=== PATIENT | female | born 1990 | race American Indian/Alaskan Native ===

== ENCOUNTER 2016-09-14 10:02 | Emergency (ER) | payer MEDICAID ==
[2016-09-14] MEDS ORDERED: TORADOL IM ONE (13:26)
--- NOTE | 2016-09-14 14:16 | Emergency Department Report ---
ED General Adult HPI - General Chief complaint: Pain General Stated complaint: BODY PAINS Time Seen by Provider: 09/14/16 13:25 Source: patient Mode of arrival: Ambulatory Limitations: No Limitations - History of Present Illness Initial comments: 25 y/o female complain of generalized body ache x 2 months .pt state tahat she was seen at [facility] and was told she had lupus .pt noncompliant with medication .pt state that when she ache she out of predinsone which help with swelling . Onset/Timin -: month(s) Location: face, upper extremity, lower extremity Radiation: non-radiation Severity scale (0 -10): 5 Quality: aching Consistency: intermittent Improves with: medication Worsens with: none Associated Symptoms: denies other symptoms - Related Data Previous Rx's Medication Instructions Recorded Last Taken Type Amoxicillin/K Clav Tab [Augmentin 1 tab PO Q12HR #20 tab 07/15/15 Unknown Rx 875 mg] Fluticasone [Flonase] 1 spray NS QDAY #1 bottle 07/15/15 Unknown Rx Ibuprofen [Motrin 800 MG tab] 800 mg PO Q8HR PRN #30 tablet 07/15/15 Unknown Rx guaiFENesin/CODEINE [Robitussin AC] 5 ml PO Q6HR #120 ml 07/15/15 Unknown Rx Ciprofloxacin HCl [Ciprofloxacin 500 mg PO BID #10 tablet 07/20/16 Unknown Rx TAB] Fluconazole [Diflucan TAB] 150 mg PO ONCE #1 tablet 07/20/16 Unknown Rx Ibuprofen [Motrin] 800 mg PO Q8HR PRN #15 tablet 09/14/16 Unknown Rx predniSONE [Deltasone] 20 mg PO QDAY #5 tab 09/14/16 Unknown Rx Allergies Allergy/AdvReac Type Severity Reaction Status Date / Time peanut Allergy Vomiting Verified 11/23/13 18:44 tomato [Tomato] AdvReac Unknown Verified 11/23/13 18:44 wheat AdvReac Unknown Verified 11/23/13 18:44 ED Review of Systems ROS: Stated complaint: BODY PAINS Other details as noted in HPI Constitutional: denies: chills, fever Eyes: denies: eye pain, eye discharge, vision change ENT: denies: ear pain, throat pain Respiratory: denies: cough, shortness of breath, wheezing Cardiovascular: denies: chest pain, palpitations Endocrine: no symptoms reported Gastrointestinal: denies: abdominal pain, nausea, diarrhea Genitourinary: denies: urgency, dysuria, discharge Musculoskeletal: arthralgia. denies: back pain, joint swelling Skin: denies: rash, lesions Neurological: denies: headache, weakness, paresthesias Psychiatric: denies: anxiety, depression Hematological/Lymphatic: denies: easy bleeding, easy bruising ED Past Medical Hx - Past Medical History Previous Medical History?: Yes Hx Hypertension: Yes Hx Diabetes: No Hx Deep Vein Thrombosis: No Hx Renal Disease: No Hx Sickle Cell Disease: No Hx Seizures: No Hx Asthma: Yes (last attack 2012) Hx HIV: No Additional medical history: (ectopic ) - Surgical History Past Surgical History?: Yes Additional Surgical History: 3 vaginal deliveries - Social History Smoking Status: Former Smoker Substance Use Type: Non Opiate Pain - Medications Home Medications: Home Medications Medication Instructions Recorded Confirmed Last Taken Type Amoxicillin/K Clav Tab [Augmentin 1 tab PO Q12HR #20 tab 07/15/15 Unknown Rx 875 mg] Fluticasone [Flonase] 1 spray NS QDAY #1 bottle 07/15/15 Unknown Rx Ibuprofen [Motrin 800 MG tab] 800 mg PO Q8HR PRN #30 tablet 07/15/15 Unknown Rx guaiFENesin/CODEINE [Robitussin AC] 5 ml PO Q6HR #120 ml 07/15/15 Unknown Rx Ciprofloxacin HCl [Ciprofloxacin 500 mg PO BID #10 tablet 07/20/16 Unknown Rx TAB] Fluconazole [Diflucan TAB] 150 mg PO ONCE #1 tablet 07/20/16 Unknown Rx Ibuprofen [Motrin] 800 mg PO Q8HR PRN #15 tablet 09/14/16 Unknown Rx predniSONE [Deltasone] 20 mg PO QDAY #5 tab 09/14/16 Unknown Rx ED Physical Exam - General Limitations: No Limitations General appearance: alert, in no apparent distress - Head Head exam: Present: atraumatic, normocephalic - Eye Eye exam: Present: normal appearance, PERRL - ENT ENT exam: Present: mucous membranes moist - Neck Neck exam: Present: normal inspection, full ROM. Absent: tenderness - Respiratory Respiratory exam: Present: normal lung sounds bilaterally. Absent: respiratory distress - Cardiovascular Cardiovascular Exam: Present: regular rate, normal rhythm. Absent: systolic murmur, diastolic murmur, rubs, gallop - GI/Abdominal GI/Abdominal exam: Present: soft, normal bowel sounds - Extremities Exam Extremities exam: Present: normal inspection, full ROM, normal capillary refill. Absent: tenderness, pedal edema, joint swelling - Back Exam Back exam: Present: normal inspection, full ROM. Absent: tenderness, CVA tenderness (R), CVA tenderness (L), muscle spasm - Neurological Exam Neurological exam: Present: alert, oriented X3 - Psychiatric Psychiatric exam: Present: normal affect, normal mood - Skin Skin exam: Present: warm, dry, intact, normal color. Absent: rash ED Course Vital Signs 09/14/16 09/14/16 10:25 14:31 Temperature 98.1 F Pulse Rate 70 110 H Respiratory 16 16 Rate Blood Pressure 153/102 Blood Pressure 152/94 [Right] O2 Sat by Pulse 99 98 Oximetry ED Medical Decision Making - Medical Decision Making generalized bodyache pt current been follow at [facility] pt state she was told she has lupus pt requesting prednisone and pain control pt state she would follow up with primary care provider Critical care attestation.: If time is entered above; I have spent that time in minutes in the direct care of this critically ill patient, excluding procedure time. ED Disposition Clinical Impression: Body aches Disposition: DISCHARGED TO HOME OR SELFCARE Is pt being admited?: No Does the pt Need Aspirin: No Condition: Stable Instructions: Hypertension (ED) Additional Instructions: follow up with [facility] or primary care doctor Prescriptions: predniSONE [Deltasone] 20 mg PO QDAY #5 tab Ibuprofen [Motrin] 800 mg PO Q8HR PRN #15 tablet PRN Reason: Pain Referrals: PRIMARY CARE, [Primary Care Provider] - 3-5 Days [facility] [Outside] - 3-5 Days Time of Disposition: 14:16
[2016-09-14 14:33] VITALS: BP 152/94
== END 2016-09-14 14:33 | disposition home or self-care (01) ==
LOC: ED 10:02
DX: M79.1 Myalgia (principal); I10 Essential (primary) hypertension; J45.909 Unspecified asthma, uncomplicated; Z87.891 Personal history of nicotine dependence
CPT/HCPCS: 96372; 99282; J1885

== ENCOUNTER 2017-02-03 11:11 | Emergency (ER) | payer MEDICAID ==
--- NOTE | 2017-02-03 13:06 | Emergency Department Report ---
HPI - General Chief Complaint: Skin/Abscess/Foreign Body Time Seen by Provider: 02/03/17 12:27 - HPI HPI: She is a 26-year-old female presents to ED complaining of throat pain 2-3 days. Patient states she feels like her sinuses are congested and feels facial pressure for the past 2 days. Patient also states she has had right foot pain the past couple of days. Patient states she does not recall injuring the foot or fall or any trauma. Patient states he hurts to put on her shoes and weight bearing hurts as well. She reports takingno medications or any other medical problems She denies fevers/chills/nausea/vomiting/abdominal pain/chest pain/shortness of breath ED Past Medical Hx - Past Medical History Hx Hypertension: Yes Hx Diabetes: No Hx Deep Vein Thrombosis: No Hx Renal Disease: No Hx Sickle Cell Disease: No Hx Seizures: No Hx Asthma: Yes (last attack 2012) Hx HIV: No Additional medical history: (ectopic ) - Surgical History Additional Surgical History: 3 vaginal deliveries - Social History Smoking Status: Never Smoker Substance Use Type: Alcohol - Medications Home Medications: Home Medications Medication Instructions Recorded Confirmed Last Taken Type Amoxicillin/K Clav Tab [Augmentin 1 tab PO Q12HR #20 tab 07/15/15 Unknown Rx 875 mg] guaiFENesin/CODEINE [Robitussin AC] 5 ml PO Q6HR #120 ml 07/15/15 Unknown Rx Ciprofloxacin HCl [Ciprofloxacin 500 mg PO BID #10 tablet 07/20/16 Unknown Rx TAB] Fluconazole [Diflucan TAB] 150 mg PO ONCE #1 tablet 07/20/16 Unknown Rx Ibuprofen [Motrin] 800 mg PO Q8HR PRN #15 tablet 09/14/16 Unknown Rx predniSONE [Deltasone] 20 mg PO QDAY #5 tab 09/14/16 Unknown Rx Cyclobenzaprine [Flexeril] 10 mg PO QHS PRN #20 tablet 02/03/17 Unknown Rx Fluticasone [Flonase] 1 spray NS QDAY #1 bottle 02/03/17 Unknown Rx Ibuprofen [Motrin 800 MG tab] 800 mg PO Q8HR PRN #30 tablet 02/03/17 Unknown Rx Pseudoephedrine [Sudafed] 1 tab PO TID #30 tablet 02/03/17 Unknown Rx ED Review of Systems ROS: Stated complaint: SPIDER BITE FOOT AND HANDS SWOLLEN Other details as noted in HPI Constitutional: denies: chills, fever Eyes: denies: eye pain, eye discharge, vision change ENT: denies: ear pain, throat pain Respiratory: denies: cough, shortness of breath, wheezing Cardiovascular: denies: chest pain, palpitations Endocrine: no symptoms reported Gastrointestinal: denies: abdominal pain, nausea, diarrhea Genitourinary: denies: urgency, dysuria, discharge Musculoskeletal: denies: back pain, joint swelling, arthralgia Skin: denies: rash, lesions Neurological: denies: headache, weakness, paresthesias Psychiatric: denies: anxiety, depression Hematological/Lymphatic: denies: easy bleeding, easy bruising Physical Exam - Physical Exam Vital Signs: Vital Signs 02/03/17 11:39 Temperature 99.0 F Pulse Rate 69 Respiratory 16 Rate Blood Pressure 133/97 O2 Sat by Pulse 99 Oximetry Physical Exam: GENERAL: Alert and oriented x3, no apparent distress, Normal Gait, atraumatic. HEAD: Head is normocephalic and a-traumatic. No sinus tenderness EARS: symetrical, atraumatic, non tender, ear canal clear and moderate cerumen, tympanic membrance non inflamed. gross auditory nml bilaterally. MOUTH:Mouth is well hydrated and without lesions. Tonsils nonerythematous, mildly swollen, Uvula midline, Tongue not elevated. Mucous membranes are moist. Posterior pharynx clear, no exudate or lesions. Patent airways. NECK: Supple. Non edematous, No carotid bruits. No lymphadenopathy or thyromegaly. LUNGS: Symetrical with respiration, No wheezing, no rales or crackles, CTAB. HEART: S1, S2 present, regular rate and rhythm without murmur, no rubs, no gallops. ABDOMEN: No organomegaly was noted,Positive bowel sounds, soft, and non- distended. . Nontender to palpation on all Quadrants, NO CVA tenderness. EXTREMITIES/MUSCULOSKELETAL: No cyanosis, clubbing, rash, lesions or edema. Full ROM bilaterally. UE/LE Pulses 2+ bilaterally. Upper extremity the wrist and ankle and foot joints intact, nonerythematous, nonerythematous, joints are nontender to palpation. NEUROLOGIC: The patient is cooperative with no focal neurologic deficits. Cranial nerves II through XII are grossly intact. Normal speech. SKIN: Warm and dry, No lesions, No ulceration or induration present. ED Course Vital Signs 02/03/17 11:39 Temperature 99.0 F Pulse Rate 69 Respiratory 16 Rate Blood Pressure 133/97 O2 Sat by Pulse 99 Oximetry ED Medical Decision Making - Medical Decision Making 26-year-old female presents with nasal congestion/foot arthralgia ED course: Patient received Tylenol and codeine , 60 mg of prednisone. Urinalysis, urine test negative. Discussed the patient take medication as prescribed. Vital signs are normal patient is in no acute distress. Patient understands instructions given and states she will comply to follow-up. Patient has no neurological deficit Critical care attestation.: If time is entered above; I have spent that time in minutes in the direct care of this critically ill patient, excluding procedure time. ED Disposition Clinical Impression: Nasal sinus congestion Arthralgia of foot Qualifiers: Laterality: right Qualified Code(s): M25.571 - Pain in right ankle and joints of right foot Disposition: DISCHARGED TO HOME OR SELFCARE Is pt being admited?: No Does the pt Need Aspirin: No Condition: Stable Instructions: Pseudoephedrine (By mouth), Allergic Rhinitis (ED), Arthralgia ( ED) Prescriptions: Cyclobenzaprine [Flexeril] 10 mg PO QHS PRN #20 tablet PRN Reason: Muscle Spasm Fluticasone [Flonase] 1 spray NS QDAY #1 bottle Ibuprofen [Motrin 800 MG tab] 800 mg PO Q8HR PRN #30 tablet PRN Reason: Pain Pseudoephedrine [Sudafed] 1 tab PO TID #30 tablet Referrals: PRIMARY MD FAVIOLA [Primary Care Provider] - 3-5 Days SIGIFREDO GOLD MD [Referring] - 3-5 Days [facility] [Outside] - 3-5 Days [facility] [Outside] - 3-5 Days [facility] [Outside] - 3-5 Days Forms: Accompanied Note, Work/School Release Form(ED) Time of Disposition: 15:04
[2017-02-03] MEDS ORDERED: TYLENOL/CODEINE PO ONE (14:56)
[2017-02-03] MEDS ORDERED: DELTASONE PO ONE (15:00)
[2017-02-03 15:06] LABS: Bilirubin,Urine NEG (Negative); Blood,Urine NEG (Negative); Ketones,Urine NEG (Negative); Leukocyte Esterase,Urine MOD (Negative); Mucus,Urine FEW /HPF; Nitrite,Urine NEG (Negative); Protein,Urine <15 mg/dL mg/dL (Negative); Urobilinogen,Urine < 2.0 mg/dL (<2.0)
--- NOTE | 2017-02-03 15:35 | XRay Report ---
Right foot 3 views: History: Pain. Findings: No bony or articular abnormality. No fracture dislocation or soft tissue calcification. Impression: Essentially negative right foot.
--- NOTE | 2017-02-03 15:35 | XRay Report ---
Single view chest: Compared to 07/15/15. History: Chest. Findings: Normal cardiomediastinal silhouette. Trachea is midline. No consolidation, pneumothorax or pleural effusion. Impression: No acute cardiopulmonary findings.
[2017-02-03 16:21] VITALS: BP 126/82
== END 2017-02-03 16:21 | disposition home or self-care (01) ==
LOC: ED 11:11
DX: R09.81 Nasal congestion (principal); M25.571 Pain in right ankle and joints of right foot; I10 Essential (primary) hypertension; J45.909 Unspecified asthma, uncomplicated; Z91.018 Allergy to other foods; Z91.010 Allergy to peanuts
CPT/HCPCS: 71010; 73630; 81001; 81025; 87116; 87430; 99284; J7512

== ENCOUNTER 2017-05-28 12:03 | Day surgery (SDC) | payer MEDICAID ==
[~2017-05-28 12:03] MED LIST: MARCAINE 0.5% INFILTRATI ONE; NACL 0.9% IR ONE
--- NOTE | 2017-05-28 13:14 | Short Stay Summary ---
Short Stay Documentation Date of service: 05/28/17 Narrative H&P: 26y/o with pelvic pain located on the left. She had findings of a small left ovarian cyst. Patient states the pain has been persistent for weeks. - History Principal diagnosis: Pelvic pain Past Medical History: No medical history Past Surgical History: Other (laparoscopy) Social history: single - Allergies and Medications Current Medications: Allergies No Known Allergies Allergy (Unverified 05/27/17 12:45) Home Medications Medication Instructions Recorded Confirmed Last Taken Type No Known Home Medications [No 05/27/17 05/27/17 Unknown History Reported Home Medications] - Physical exam General appearance: no acute distress Integumentary: no rash HEENT: Atraumatic Lungs: Clear to auscultation Breasts: deferred Heart: Regular rate Gastrointestinal: normal Female Genitourinary: deferred Rectal Exam: deferred - Brief post op/procedure progress note Date of procedure: 05/28/17 Pre-op diagnosis: pelvic pain; left ovarian cyst Post-op diagnosis: same Procedure: Laparoscopy Left ovarian cystectomy Ablation of endometriotic implants Anesthesia: GETA Surgeon: SERENA MARTÍNEZ Estimated blood loss: minimal Pathology: list (ovarian cyst wall) Specimen disposition: to lab Condition: stable - Hospital course Hospital course: The patient was admitted the day of surgery and underwent a laparoscopy and left ovarian cystectomy. Please see operative note for details of surgery. Postoperative course was uneventful. - Disposition Condition at discharge: Good Disposition: DC-01 TO HOME OR SELFCARE Short Stay Discharge Plan Activity: other (pelvic rest for 1 week) Diet: regular Additional Instructions: Patient may follow up with Dr. Martínez in 2-4 weeks Prescriptions: Ibuprofen [Motrin] 800 mg PO Q8HR PRN #60 tablet PRN Reason: Pain oxyCODONE /ACETAMINOPHEN [Percocet 5/325] 1 tab PO Q6HR PRN #30 tablet PRN Reason: Pain
--- NOTE | 2017-05-28 13:32 | Anesthesia Consultation ---
Anesthesia Consult and Med Hx Date of service: 05/28/17 - Airway Anesthetic Teeth Evaluation: Good ROM Head & Neck: Adequate Mental/Hyoid Distance: Adequate Mallampati Class: Class I Intubation Access Assessment: Good - Pulmonary Exam CTA: Yes - Cardiac Exam Cardiac Exam: RRR - Pre-Operative Health Status ASA Pre-Surgery Classification: ASA2 Proposed Anesthetic Plan: General - Pulmonary Hx Smoking: Yes (occas) Hx Asthma: Yes (as a child) - Cardiovascular System Hx Hypertension: Yes - Central Nervous System Hx Seizures: No Hx Psychiatric Problems: No - Endocrine Hx Renal Disease: No Hx Hypothyroidism: No Hx Hyperthyroidism: No - Hematic Hx Anemia: Yes (takes iron tablets) Hx Sickle Cell Disease: No - Other Systems Hx Alcohol Use: No Hx Cancer: No
--- NOTE | 2017-05-28 13:32 | Anesthesia Day of Surgery ---
Anesthesia Day of Surgery - Day of Surgery Patient Examined: Yes Patient H&P Reviewed: Yes Patient is NPO: Yes
[2017-05-28] MEDS ORDERED: PEPCID PO NR (14:00)
[2017-05-28] MEDS ORDERED: DIPRIVAN 10 MG/ML IV ONE (14:32)
[2017-05-28] MEDS ORDERED: SUBLIMAZE ONE (14:33)
[2017-05-28] MEDS ORDERED: XYLOCAINE MPF 2% ONE (14:33)
[2017-05-28] MEDS ORDERED: ZEMURON IV ONE (14:35)
[2017-05-28] MEDS: LACTATED RINGERS 1,000 ML IV SCH ×2 (14:44→18:20)
[2017-05-28 14:47] LABS: Hematocrit 40.1 % (30.3-42.9); Hemoglobin 12.9 gm/dl (10.1-14.3)
[2017-05-28] MEDS: VERSED IV NR ×2 (14:50→15:36)
[2017-05-28] MEDS ORDERED: VERSED IV SCH (15:32)
[2017-05-28] MEDS ORDERED: MARCAINE 0.5% 30 ML INFILTRATI ONE (15:41)
[2017-05-28] MEDS ORDERED: ZOFRAN ONE ×2 (16:20→19:19)
[2017-05-28] MEDS ORDERED: DECADRON ONE (16:20)
[2017-05-28] MEDS ORDERED: NEOSTIGMINE ONE (16:20)
[2017-05-28] MEDS ORDERED: ROBINUL ONE (16:21)
[2017-05-28] MEDS ORDERED: MARCAINE 0.5% INFILTRATI ONE (16:39)
[2017-05-28] MEDS ORDERED: NACL 0.9% IR ONE (16:43)
--- NOTE | 2017-05-28 16:49 | Operative Report ---
Operative Report Operative Report: Date of surgery: 05/28/2017 Preoperative diagnosis: Pelvic pain; left ovarian cyst Postoperative diagnosis: Same as above; endometriotic implants Procedure: Laparoscopy; left ovarian cystectomy; ablation of endometriotic implants Surgeon: Jackie Loja M.D. Anesthesia: General endotracheal anesthesia Estimated blood loss: Minimal Findings:[default value] Indication:[default value] Procedure: The patient was taken to the operating room and given general endotracheal anesthesia without complication. The patient is prepped and draped in a normal sterile fashion. A bivalve speculum was placed in the patient's vagina and a single-tooth tenaculum was placed on the anterior lip of the cervix .A uterine acorn manipulato rwas placed, and the bivalve speculum was then removed. Attention was then turned to the patient's abdomen where a 5 mm infraumbilical skin incision was then made. A Veress needle was placed and peritoneal entry was verified water-filled syringe. Insufflation of the peritoneal cavity was performed with CO2 gas. A 5 mm trocar was placed and the laparoscope was then inserted. The patient was then placed in Trendelenburg. A 7 mm suprapubic skin incision was then made. Under direct visualization a 7 mm trocar was then placed. General survey of the patient's abdomen revealed[default value]. The fallopian tube was then followed out to the fimbriated end. A Filshie clip was placed, on the ampullary portion of the tube. This was performed on the contralateral side as well. The 7 mm trocar was then removed. The pneumoperitoneum was then released. The 5 mm trocar laparoscope was then removed. The skin incisions were then closed with 4-0 Monocryl. The incisions were injected with quarter percent Marcaine. Dressings were applied to the incision. The vaginal instruments were then removed atraumatically. Then successfully extubated and taken to the recovery room. All sponge laps and needle counts were correct 2.
[2017-05-28] MEDS ORDERED: ZOFRAN IV PRN (17:30)
[2017-05-28] MEDS: DILAUDID IV PRN ×4 (17:35→18:05)
--- NOTE | 2017-05-28 17:39 | Post Anesthesia Evaluation ---
- Post Anesthesia Evaluation Patient Participated: Yes Airway Patent: Yes Stable Respiratory Function: Yes Nausea/Vomiting: No Temp > 96.8F: Yes Pain Manageable: Yes Adequeate Hydration: Yes Anesthesia Complications: No Block Receding Appropriately: Not Applicable Patient on Ventilator: No
[2017-05-28] MEDS ORDERED: PERCOCET 5/325 PO PRN (18:10)
[2017-05-28 19:52] VITALS: BP 125/81
== END 2017-05-28 19:40 | disposition home or self-care (01) ==
LOC: OR 12:03
PROVIDERS: ATTEND Obstetrics & Gynecology
DX: N83.12 Corpus luteum cyst of left ovary (principal); N80.8 Other endometriosis; I10 Essential (primary) hypertension
CPT/HCPCS: 36415; 58662; 81025; 85014; 85018; 88305; J1100; J1170; J2250; J2405; J2704; J2710; J3010; J7120

== ENCOUNTER 2018-05-11 05:15 | Emergency (ER) | payer MEDICAID ==
[2018-05-11] MEDS ORDERED: TORADOL ONE (06:06)
[2018-05-11 06:12] VITALS: BP 140/93
[2018-05-11] MEDS ORDERED: TORADOL IM ONE (06:12)
[2018-05-11] MEDS ORDERED: DECADRON IM ONE (06:44)
[2018-05-11] MEDS ORDERED: BICILLIN L-A IM ONE (06:44)
--- NOTE | 2018-05-11 06:51 | Emergency Department Report ---
ED ENT HPI - General Chief complaint: Sore Throat Stated complaint: THROAT PAIN/BODY ACHE Time Seen by Provider: 05/11/18 06:44 Source: patient Mode of arrival: Ambulatory Limitations: No Limitations - History of Present Illness Initial comments: With this Patient is a 27-year-old [place] female who presents to sore throat 3 days with dysphagia pain relieved by nothing and exacerbated by swallowing MD complaint: sore throat Onset/Timin -: days(s) Location: throat Severity: moderate Severity scale (0 -10): 6 Quality: burning, sharp Consistency: intermittent Improves with: none Worsens with: swallowing Associated Symptoms: pain with swallowing, sore throat - Related Data Previous Rx's Medication Instructions Recorded Last Taken Type Ibuprofen [Motrin] 800 mg PO Q8HR PRN #60 tablet 05/28/17 Unknown Rx oxyCODONE /ACETAMINOPHEN [Percocet 1 tab PO Q6HR PRN #30 tablet 05/28/17 Unknown Rx 5/325] Benzocaine/Menth/Cetylpyrd 1 each PO Q2H PRN #24 yordan 05/11/18 Unknown Rx [Cepacol X Strength] Ibuprofen 800 mg PO TID PRN #30 tablet 05/11/18 Unknown Rx Allergies Allergy/AdvReac Type Severity Reaction Status Date / Time No Known Allergies Allergy Unverified 05/27/17 12:45 ED Dental HPI - General Chief complaint: Sore Throat Stated complaint: THROAT PAIN/BODY ACHE Time Seen by Provider: 05/11/18 06:44 Source: patient Mode of arrival: Ambulatory Limitations: No Limitations - Related Data Previous Rx's Medication Instructions Recorded Last Taken Type Ibuprofen [Motrin] 800 mg PO Q8HR PRN #60 tablet 05/28/17 Unknown Rx oxyCODONE /ACETAMINOPHEN [Percocet 1 tab PO Q6HR PRN #30 tablet 05/28/17 Unknown Rx 5/325] Benzocaine/Menth/Cetylpyrd 1 each PO Q2H PRN #24 yordan 05/11/18 Unknown Rx [Cepacol X Strength] Ibuprofen 800 mg PO TID PRN #30 tablet 05/11/18 Unknown Rx Allergies Allergy/AdvReac Type Severity Reaction Status Date / Time No Known Allergies Allergy Unverified 05/27/17 12:45 ED Review of Systems ROS: Stated complaint: THROAT PAIN/BODY ACHE Other details as noted in HPI Constitutional: denies: chills, fever Eyes: denies: eye pain, eye discharge, vision change ENT: throat pain Respiratory: denies: cough, shortness of breath, wheezing Cardiovascular: denies: chest pain, palpitations Endocrine: no symptoms reported Gastrointestinal: denies: abdominal pain, nausea, diarrhea Genitourinary: denies: urgency, dysuria, discharge Musculoskeletal: denies: back pain, joint swelling, arthralgia Skin: denies: rash, lesions Neurological: denies: headache, weakness, paresthesias Psychiatric: denies: anxiety, depression Hematological/Lymphatic: denies: easy bleeding, easy bruising ED Past Medical Hx - Past Medical History Hx Hypertension: Yes Hx Diabetes: No Hx Deep Vein Thrombosis: No Hx Renal Disease: No Hx Sickle Cell Disease: No Hx Seizures: No Hx Asthma: Yes (as a child) Hx HIV: No Additional medical history: (ectopic ) - Surgical History Additional Surgical History: 3 vaginal deliveries - Social History Smoking Status: Current Every Day Smoker Substance Use Type: None - Medications Home Medications: Home Medications Medication Instructions Recorded Confirmed Last Taken Type Ibuprofen [Motrin] 800 mg PO Q8HR PRN #60 tablet 05/28/17 Unknown Rx oxyCODONE /ACETAMINOPHEN [Percocet 1 tab PO Q6HR PRN #30 tablet 05/28/17 Unknown Rx 5/325] Benzocaine/Menth/Cetylpyrd 1 each PO Q2H PRN #24 yordan 05/11/18 Unknown Rx [Cepacol X Strength] Ibuprofen 800 mg PO TID PRN #30 tablet 05/11/18 Unknown Rx ED Physical Exam - General Limitations: No Limitations General appearance: alert, in no apparent distress - Head Head exam: Present: atraumatic, normocephalic - Eye Eye exam: Present: normal appearance - ENT ENT exam: Present: mucous membranes moist, TM's normal bilaterally (TOSHA and) - Expanded ENT Exam Expanded Throat exam: Positive: tonsillar erythema, tonsillomegaly, tonsillar exudate. Negative: R peritonsillar mass, L peritonsillar mass - Neck Neck exam: Present: normal inspection, full ROM, lymphadenopathy. Absent: tenderness, meningismus, thyromegaly - Respiratory Respiratory exam: Present: normal lung sounds bilaterally. Absent: respiratory distress, wheezes, stridor, chest wall tenderness - Cardiovascular Cardiovascular Exam: Present: regular rate, normal rhythm, normal heart sounds. Absent: systolic murmur, diastolic murmur, rubs, gallop - GI/Abdominal GI/Abdominal exam: Present: soft, normal bowel sounds - Rectal Rectal exam: Present: deferred - External exam: Present: normal external exam - Extremities Exam Extremities exam: Present: normal inspection - Back Exam Back exam: Present: normal inspection - Neurological Exam Neurological exam: Present: alert, oriented X3, CN II-XII intact, normal gait, reflexes normal. Absent: motor sensory deficit - Psychiatric Psychiatric exam: Present: normal affect, normal mood - Skin Skin exam: Present: warm, dry, intact, normal color. Absent: rash ED Course Vital Signs 05/11/18 06:08 Temperature 99.5 F Pulse Rate 89 Respiratory 16 Rate Blood Pressure 140/93 O2 Sat by Pulse 99 Oximetry ED Medical Decision Making - Lab Data Laboratory Tests 05/11/18 Unknown Group A Strep Rapid Positive A - Medical Decision Making pt is a 27 y/o aaf who preents for sore throat x 3 days with dysphagia rapid strep positive for strep a plan Bicillin LA 1.2 milliunits Decadron 10 mg IM DC' d home Cepacol lozenges ibuprofen . The patient will follow up with PCP N2 to 3 days return to ED if symptoms worsen Critical care attestation.: If time is entered above; I have spent that time in minutes in the direct care of this critically ill patient, excluding procedure time. ED Disposition Clinical Impression: Strep throat Disposition: DC-01 TO HOME OR SELFCARE Is pt being admited?: No Does the pt Need Aspirin: No Condition: Good Instructions: Strep Throat (ED) Prescriptions: Benzocaine/Menth/Cetylpyrd [Cepacol X Strength] 1 each PO Q2H PRN #24 yordan PRN Reason: Pain , Severe (7-10) Ibuprofen 800 mg PO TID PRN #30 tablet PRN Reason: pain Referrals: PRIMARY CARE, [Primary Care Provider] - 3-5 Days Forms: Work/School Release Form(ED) Time of Disposition: 06:55
== END 2018-05-11 07:28 | disposition home or self-care (01) ==
LOC: ED 05:15
DX: J02.0 Streptococcal pharyngitis (principal); I10 Essential (primary) hypertension; J45.909 Unspecified asthma, uncomplicated; F17.200 Nicotine dependence, unspecified, uncomplicated
CPT/HCPCS: 87430; 96372; 99283; J0561; J1100; J1885

== ENCOUNTER 2018-09-22 22:58 | Emergency (ER) | payer MEDICAID ==
[2018-09-22 23:08] VITALS: BP 153/83
[2018-09-22] MEDS ORDERED: TYLENOL PO ONE (23:10)
[2018-09-22] MEDS ORDERED: TYLENOL ONE ×2 (23:13)
[2018-09-22 23:18] LABS: Hematocrit 35.7 % (30.3-42.9); Hemoglobin 12.1 gm/dl (10.1-14.3); Mean Corpuscular HGB Conc 34 % (30-34); Mean Corpuscular Volume 83 fl (79-97); Platelet Count 289 K/mm3 (140-440); Red Blood Count 4.28 M/mm3 (3.65-5.03); Red Cell Distribution Width 13.1 % (13.2-15.2)
[2018-09-22 23:35] LABS: Alanine Aminotransferase 13 units/L (7-56); Albumin 4.4 g/dL (3.9-5); BUN/Creatinine Ratio 7; Blood Urea Nitrogen 8 mg/dL (7-17); Calcium 9.2 mg/dL (8.4-10.2); Hemolysis Index 10
[2018-09-22 23:51] LABS: Total Cells Counted 100
[2018-09-22 23:52] LABS: Anisocytosis 1+; Large Platelets 1+; Ovalocytes 1+
[2018-09-23 00:11] LABS: Bilirubin,Urine NEG (Negative); Blood,Urine MOD (Negative); Color,Urine Yellow (Yellow); Mucus,Urine 2+ /HPF
[2018-09-23] MEDS ORDERED: NACL 0.9% 1000 ML 1,000 ML IV ONE (02:51)
[2018-09-23] MEDS ORDERED: ZOFRAN IV ONE (02:51)
[2018-09-23] MEDS ORDERED: MORPHINE IV ONE (02:51)
[2018-09-23] MEDS ORDERED: TORADOL IVP ONE (02:51)
--- NOTE | 2018-09-23 02:51 | Emergency Department Report ---
ED Abdominal Pain HPI - General Chief Complaint: Abdominal Pain Stated Complaint: ABDOMINAL, BACK PAIN Time Seen by Provider: 09/23/18 02:20 Source: patient, family Mode of arrival: Ambulatory Limitations: No Limitations - History of Present Illness Initial Comments: This is 27-year-old patient here reports that she is having abdominal pain periumbilical area decided down her right lower quadrant. Patient says she was seen by her doctor today and he just told her that she is stressed. She says she came to the hospital because the pain is really bad on the right side and she had some nausea and vomiting. Pain is 10 out of 10 and sharp and achy. Denies any fever or chills. Denies any urinary burning, frequency or urgency. Denies any back pain. No alleviating and excess abated with movement and touch. MD Complaint: abdominal pain -: This morning Location: periumbilical, RLQ Radiation: back (right back) Migration to: no migration Severity: severe Severity scale (0 -10): 10 Quality: cramping, fullness, sharp Consistency: constant Improves With: nothing Worsens With: movement (and palpation) Context: other (unknown) Associated Symptoms: nausea, vomiting. denies: diarrhea, fever, chills, constipation, dysuria, hematemesis, hematochezia, melena, hematuria, anorexia, syncope Treatments Prior to Arrival: other (Tylenol) - Related Data Previous Rx's Medication Instructions Recorded Last Taken Type Ibuprofen [Motrin] 800 mg PO Q8HR PRN #60 tablet 05/28/17 Unknown Rx oxyCODONE /ACETAMINOPHEN [Percocet 1 tab PO Q6HR PRN #30 tablet 05/28/17 Unknown Rx 5/325] Benzocaine/Menth/Cetylpyrd 1 each PO Q2H PRN #24 yordan 05/11/18 Unknown Rx [Cepacol X Strength] Ibuprofen 800 mg PO TID PRN #30 tablet 05/11/18 Unknown Rx Naproxen [Naprosyn] 500 mg PO BID PRN #12 tablet 09/23/18 Unknown Rx Ondansetron [Zofran ODT TAB] 8 mg PO Q8HR PRN #12 tab.rapdis 09/23/18 Unknown Rx Allergies Allergy/AdvReac Type Severity Reaction Status Date / Time No Known Allergies Allergy Unverified 05/27/17 12:45 ED Review of Systems ROS: Stated complaint: ABDOMINAL, BACK PAIN Other details as noted in HPI Constitutional: denies: chills, fever ENT: denies: throat pain, dental pain, congestion Respiratory: denies: cough, shortness of breath, wheezing Cardiovascular: denies: chest pain, palpitations, dyspnea on exertion, edema, syncope Gastrointestinal: abdominal pain, nausea, vomiting. denies: diarrhea, constipation, hematemesis, melena, hematochezia Genitourinary: denies: urgency, dysuria, frequency, hematuria, discharge, abnormal menses, dyspareunia Musculoskeletal: denies: back pain, joint swelling, arthralgia, myalgia Skin: denies: rash Neurological: denies: headache, weakness, numbness, paresthesias, confusion, abnormal gait, vertigo ED Past Medical Hx - Past Medical History Previous Medical History?: Yes Hx Hypertension: Yes Hx Diabetes: No Hx Deep Vein Thrombosis: No Hx Renal Disease: No Hx Sickle Cell Disease: No Hx Seizures: No Hx Asthma: Yes (as a child) Hx HIV: No Additional medical history: (ectopic ) - Surgical History Past Surgical History?: Yes Additional Surgical History: 3 vaginal deliveries - Family History Family history: hypertension - Social History Smoking Status: Current Every Day Smoker Substance Use Type: Alcohol, Marijuana - Medications Home Medications: Home Medications Medication Instructions Recorded Confirmed Last Taken Type Ibuprofen [Motrin] 800 mg PO Q8HR PRN #60 tablet 05/28/17 Unknown Rx oxyCODONE /ACETAMINOPHEN [Percocet 1 tab PO Q6HR PRN #30 tablet 05/28/17 Unknown Rx 5/325] Benzocaine/Menth/Cetylpyrd 1 each PO Q2H PRN #24 yordan 05/11/18 Unknown Rx [Cepacol X Strength] Ibuprofen 800 mg PO TID PRN #30 tablet 05/11/18 Unknown Rx Naproxen [Naprosyn] 500 mg PO BID PRN #12 tablet 09/23/18 Unknown Rx Ondansetron [Zofran ODT TAB] 8 mg PO Q8HR PRN #12 tab.rapdis 09/23/18 Unknown Rx ED Physical Exam - General Limitations: No Limitations General appearance: alert, in no apparent distress - Head Head exam: Present: atraumatic, normocephalic, normal inspection - Eye Eye exam: Present: normal appearance, PERRL, EOMI Pupils: Present: normal accommodation - ENT ENT exam: Present: normal exam, normal orophraynx, mucous membranes moist, TM's normal bilaterally, normal external ear exam - Neck Neck exam: Present: normal inspection, full ROM. Absent: tenderness, lymphadenopathy - Respiratory Respiratory exam: Present: normal lung sounds bilaterally. Absent: respiratory distress, chest wall tenderness - Cardiovascular Cardiovascular Exam: Present: regular rate, normal rhythm, normal heart sounds - GI/Abdominal GI/Abdominal exam: Present: soft, tenderness (tended to palpate to periumbilical and right lower quadrant), guarding, normal bowel sounds. Absent: distended, rebound, rigid, organomegaly, mass, bruit, pulsatile mass - Extremities Exam Extremities exam: Present: normal inspection, full ROM, normal capillary refill, other (No cce. + 2 pulses in all extremities, no neurovascular compromise). Absent: tenderness, pedal edema, joint swelling, calf tenderness - Back Exam Back exam: Present: normal inspection, full ROM, other (ambulates without any difficulties). Absent: tenderness, CVA tenderness (R), CVA tenderness (L), muscle spasm, paraspinal tenderness, vertebral tenderness, rash noted - Neurological Exam Neurological exam: Present: alert, oriented X3, normal gait - Psychiatric Psychiatric exam: Present: normal affect, normal mood - Skin Skin exam: Present: warm, dry, intact, normal color. Absent: rash ED Course Vital Signs 09/22/18 23:00 Pulse Rate 85 Respiratory 18 Rate Blood Pressure 153/83 O2 Sat by Pulse 98 Oximetry - Reevaluation(s) Reevaluation #1: 09/23/18 05:03 Patient given Tylenol 650 mg in triage year which did not relieve her pain. She was given morphine 4 mg IV for pain, and Toradol 30 mg IV, Zofran 8 mg IV for nausea and 1 L of normal saline. She said her pain is better. Patient has CT scan of the abdomen and pelvis with IV contrast and still awaiting results. Reevaluation #2: 09/23/18 05:16 CT scan shows right ovarian cyst. Patient pain is controlled and she is no longer having any nausea or vomiting. She is stable and ready to go home. ED Medical Decision Making - Lab Data Result diagrams: 09/22/18 23:10 09/22/18 23:10 Lab Results 09/22/18 09/22/18 09/22/18 Range/Units 23:10 23:10 23:10 WBC 9.7 (4.5-11.0) K/mm3 RBC 4.28 (3.65-5.03) M/mm3 Hgb 12.1 (10.1-14.3) gm/dl Hct 35.7 (30.3-42.9) % MCV 83 (79-97) fl MCH 28 (28-32) pg MCHC 34 (30-34) % RDW 13.1 L (13.2-15.2) % Plt Count 289 (140-440) K/mm3 Lymph % (Auto) Greenhouse Assistant Lymph # Greenhouse Assistant Add Manual Diff Complete Total Counted 100 Seg Neuts % (Manual) 38.0 L (40.0-70.0) % Band Neutrophils % 0 % Lymphocytes % (Manual) 49.0 H (13.4-35.0) % Reactive Lymphs % (Man) 3.0 % Monocytes % (Manual) 4.0 (0.0-7.3) % Eosinophils % (Manual) 4.0 (0.0-4.3) % Basophils % (Manual) 2.0 H (0.0-1.8) % Metamyelocytes % 0 % Myelocytes % 0 % Promyelocytes % 0 % Blast Cells % 0 % Nucleated RBC % Not Reportable Seg Neutrophils # Man 3.7 (1.8-7.7) K/mm3 Band Neutrophils # 0.0 K/mm3 Lymphocytes # (Manual) 4.8 (1.2-5.4) K/mm3 Abs React Lymphs (Man) 0.3 K/mm3 Monocytes # (Manual) 0.4 (0.0-0.8) K/mm3 Eosinophils # (Manual) 0.4 (0.0-0.4) K/mm3 Basophils # (Manual) 0.2 H (0.0-0.1) K/mm3 Metamyelocytes # 0.0 K/mm3 Myelocytes # 0.0 K/mm3 Promyelocytes # 0.0 K/mm3 Blast Cells # 0.0 K/mm3 WBC Morphology Not Reportable Hypersegmented Neuts Not Reportable Hyposegmented Neuts Not Reportable Hypogranular Neuts Not Reportable Smudge Cells Not Reportable Toxic Granulation Not Reportable Toxic Vacuolation Not Reportable Dohle Bodies Not Reportable Pelger-Huet Anomaly Not Reportable Ousmane Rods Not Reportable Platelet Estimate Appears normal Clumped Platelets Not Reportable Plt Clumps, EDTA Not Reportable Large Platelets 1+ Giant Platelets Not Reportable Platelet Satelliting Not Reportable Plt Morphology Comment Not Reportable RBC Morphology Not Reportable Dimorphic RBCs Not Reportable Polychromasia Not Reportable Hypochromasia Not Reportable Poikilocytosis Not Reportable Anisocytosis 1+ Microcytosis Not Reportable Macrocytosis Not Reportable Spherocytes Not Reportable Pappenheimer Bodies Not Reportable Sickle Cells Not Reportable Target Cells Not Reportable Tear Drop Cells Not Reportable Ovalocytes 1+ Helmet Cells Not Reportable Staples-[place] Bodies Not Reportable [place] Rings Not Reportable [place] Cells Not Reportable Bite Cells Not Reportable Crenated Cell Not Reportable Elliptocytes Not Reportable Acanthocytes (Spur) Not Reportable Rouleaux Not Reportable Hemoglobin C Crystals Not Reportable Schistocytes Not Reportable Malaria parasites Not Reportable Bret Bodies Not Reportable Hem Pathologist Commnt No Sodium 136 L (137-145) mmol/L Potassium 3.7 (3.6-5.0) mmol/L Chloride 99.1 (98-107) mmol/L Carbon Dioxide 21 L (22-30) mmol/L Anion Gap 20 mmol/L BUN 8 (7-17) mg/dL Creatinine 1.1 (0.7-1.2) mg/dL Estimated GFR > 60 ml/min BUN/Creatinine Ratio 7 % Glucose 148 H (65-100) mg/dL Calcium 9.2 (8.4-10.2) mg/dL Total Bilirubin 0.70 (0.1-1.2) mg/dL AST 18 (5-40) units/L ALT 13 (7-56) units/L Alkaline Phosphatase 65 (35-129) units/L Total Protein 7.3 (6.3-8.2) g/dL Albumin 4.4 (3.9-5) g/dL Albumin/Globulin Ratio 1.5 % HCG, Qual Negative (Negative) Urine Color (Yellow) Urine Turbidity (Clear) Urine pH (5.0-7.0) Ur Specific [place] (1.003-1.030) Urine Protein (Negative) mg/dL Urine Glucose (UA) (Negative) mg/dL Urine Ketones (Negative) mg/dL Urine Blood (Negative) Urine Nitrite (Negative) Urine Bilirubin (Negative) Urine Urobilinogen (<2.0) mg/dL Ur Leukocyte Esterase (Negative) Urine WBC (Auto) (0.0-6.0) /HPF Urine RBC (Auto) (0.0-6.0) /HPF U Epithel Cells (Auto) (0-13.0) /HPF Urine Mucus /HPF 09/22/18 Range/Units 23:30 WBC (4.5-11.0) K/mm3 RBC (3.65-5.03) M/mm3 Hgb (10.1-14.3) gm/dl Hct (30.3-42.9) % MCV (79-97) fl MCH (28-32) pg MCHC (30-34) % RDW (13.2-15.2) % Plt Count (140-440) K/mm3 Lymph % (Auto) Lymph # Add Manual Diff Total Counted Seg Neuts % (Manual) (40.0-70.0) % Band Neutrophils % % Lymphocytes % (Manual) (13.4-35.0) % Reactive Lymphs % (Man) % Monocytes % (Manual) (0.0-7.3) % Eosinophils % (Manual) (0.0-4.3) % Basophils % (Manual) (0.0-1.8) % Metamyelocytes % % Myelocytes % % Promyelocytes % % Blast Cells % % Nucleated RBC % Seg Neutrophils # Man (1.8-7.7) K/mm3 Band Neutrophils # K/mm3 Lymphocytes # (Manual) (1.2-5.4) K/mm3 Abs React Lymphs (Man) K/mm3 Monocytes # (Manual) (0.0-0.8) K/mm3 Eosinophils # (Manual) (0.0-0.4) K/mm3 Basophils # (Manual) (0.0-0.1) K/mm3 Metamyelocytes # K/mm3 Myelocytes # K/mm3 Promyelocytes # K/mm3 Blast Cells # K/mm3 WBC Morphology Hypersegmented Neuts Hyposegmented Neuts Hypogranular Neuts Smudge Cells Toxic Granulation Toxic Vacuolation Dohle Bodies Pelger-Huet Anomaly Ousmane Rods Platelet Estimate Clumped Platelets Plt Clumps, EDTA Large Platelets Giant Platelets Platelet Satelliting Plt Morphology Comment RBC Morphology Dimorphic RBCs Polychromasia Hypochromasia Poikilocytosis Anisocytosis Microcytosis Macrocytosis Spherocytes Pappenheimer Bodies Sickle Cells Target Cells Tear Drop Cells Ovalocytes Helmet Cells Staples-[place] Bodies Galt Rings Rodríguez Cells Bite Cells Crenated Cell Elliptocytes Acanthocytes (Spur) Rouleaux Hemoglobin C Crystals Schistocytes Malaria parasites Bret Bodies Hem Pathologist Commnt Sodium (137-145) mmol/L Potassium (3.6-5.0) mmol/L Chloride (98-107) mmol/L Carbon Dioxide (22-30) mmol/L Anion Gap mmol/L BUN (7-17) mg/dL Creatinine (0.7-1.2) mg/dL Estimated GFR ml/min BUN/Creatinine Ratio % Glucose (65-100) mg/dL Calcium (8.4-10.2) mg/dL Total Bilirubin (0.1-1.2) mg/dL AST (5-40) units/L ALT (7-56) units/L Alkaline Phosphatase (35-129) units/L Total Protein (6.3-8.2) g/dL Albumin (3.9-5) g/dL Albumin/Globulin Ratio % HCG, Qual (Negative) Urine Color Yellow (Yellow) Urine Turbidity Slightly-cloudy (Clear) Urine pH 5.0 (5.0-7.0) Ur Specific [place] 1.023 (1.003-1.030) Urine Protein 30 mg/dl (Negative) mg/dL Urine Glucose (UA) Neg (Negative) mg/dL Urine Ketones Tr (Negative) mg/dL Urine Blood Mod (Negative) Urine Nitrite Neg (Negative) Urine Bilirubin Neg (Negative) Urine Urobilinogen 4.0 (<2.0) mg/dL Ur Leukocyte Esterase Sm (Negative) Urine WBC (Auto) 5.0 (0.0-6.0) /HPF Urine RBC (Auto) 28.0 (0.0-6.0) /HPF U Epithel Cells (Auto) 18.0 H (0-13.0) /HPF Urine Mucus 2+ /HPF - EKG Data Rate: bradycardia - Radiology Data Radiology results: report reviewed CT scan of the abdomen and pelvis without IV contrast dictated by radiologist report reviewed by myself. Please see details below Findings [facility] [address] [place] [address] Cat Scan Report Signed Patient: MONTSERRAT YANG MR#: [id number] : 1990 Acct:[id number] Age/Sex: 27 / F ADM Date: 09/22/18 Loc: ED Attending Dr: Ordering Physician: LYNDON SHAW Date of Service: 09/23/18 Procedure(s): CT abdomen pelvis w con Accession Number(s): [id number] cc: LYNDON HSAW FINAL REPORT EXAM: CT ABDOMEN PELVIS W CON HISTORY: abominal pain NV TECHNIQUE: Routine axial imaging was obtained of the abdomen and pelvis following the intravenous injection of 100 cc of Omnipaque 300. Delayed imaging was obtained through the kidneys ureters and bladder. Sagittal and coronal reconstructions were reviewed. FINDINGS: The lung bases are clear. Pleural fluid is not seen. The liver, gallbladder, biliary tree, pancreas, spleen, and adrenal glands appear normal. The kidneys enhance normally. There is no evidence of hydronephrosis. The bowel loops are normal in caliber and course. The appendix is not seen. There is no evidence of free fluid or adenopathy. In the pelvis the uterus and bladder appear normal. There is a very small amount of free fluid in cul-de-sac. There is a right ovarian cyst measuring 2.5 cm in diameter. The skeletal structures do not show any acute changes. IMPRESSION: 2.5 cm right ovarian cyst with a very small amount of free fluid in cul-de-sac. Appendix not identified. No evidence of any inflammatory process in the right lower quadrant. No acute process identified otherwise. Transcribed By: GENESIS Dictated By: CHRISTIAN GILBERT MD Electronically Authenticated By: CHRISTIAN GILBERT MD Signed Date/Time: 09/23/18504 DD/ 7 TD/TT: 09/23/18507 - Medical Decision Making This is a 27-year-old female here report that she is having abdominal pain to her periumbilical area and radiating down to her right back. She saw her primary care today and she said he told her she was stressed. Patient said the pain is unbearable and she came to the emergency room to figure out what is wrong with her. She received 1 L of normal saline, Toradol 30 mg IV, Motrin 4 mg IV which helped her pain. She received Zofran 8 mg IV which helped her nausea. Patient states that her pain is better. Vital signs stable she is afebrile. Patient CT scan of abdomen and pelvis with IV contrast shows IMPRES ANNA: 2.5 cm right ovarian cyst with a very small amount of free fluid in cul-de-sac. Appendix not identified. No evidence of any inflammatory process in the right lower quadrant. No acute process identified otherwise. I discussed this patient in details. And told her that she is to follow-up with [facility] for right ovarian cyst. Patient will be placed on naproxen and discharged home to follow up with [facility] on 09/24/2017. She voiced understanding. I discussed the patient and her CT scan results, diagnosis, laboratory findings and she voiced understanding. - Differential Diagnosis appendicitis, colitis, hernia, , UTI, bowel obstruction Critical care attestation.: If time is entered above; I have spent that time in minutes in the direct care of this critically ill patient, excluding procedure time. ED Disposition Clinical Impression: Right ovarian cyst Abdominal pain Qualifiers: Abdominal location: periumbilical Qualified Code(s): R10.33 - Periumbilical pain Nausea and vomiting Qualifiers: Vomiting type: unspecified Vomiting Intractability: non-intractable Qualified Code(s): R11.2 - Nausea with vomiting, unspecified Disposition: DC- TO HOME OR SELFCARE Is pt being admited?: No Does the pt Need Aspirin: No Condition: Stable Instructions: Abdominal Pain (ED), Ovarian Cyst (ED), Acute Nausea and Vomiting (ED) Additional Instructions: Follow-up with [facility] on 09/24/2018 regarding right ovarian cyst If you are symptoms return, please return to the emergency room Naproxen for abdominal pain and Zofran for nausea Referrals: [facility] [Outside] - 09/24/18 TATY MENCHACA MD [Primary Care Provider] - 09/24/18 AMELIA WEST MD [Staff Physician] - 09/24/18 Forms: Work/School Release Form(ED), Accompanied Note
--- NOTE | 2018-09-23 05:05 | Cat Scan Report ---
FINAL REPORT EXAM: CT ABDOMEN PELVIS W CON HISTORY: abominal pain NV TECHNIQUE: Routine axial imaging was obtained of the abdomen and pelvis following the intravenous in jection of 100 cc of Omnipaque 300. Delayed imaging was obtained through the kidneys ureters and blad mckenna. Sagittal and coronal reconstructions were reviewed. FINDINGS: The lung bases are clear. Pleural fluid is not seen. The liver, gallbladder, biliary tree, pancreas, spleen, and adrenal glands appear normal. The kidneys enhance normally. There is no evidence of hydronephrosis. The bowel loops are normal in caliber and course. The appendix is not seen. There is no evidence of free fluid or adenopathy. In the pelvis the uterus and bladder appear normal. There is a very small amount of free fluid in cul-de-sac. There is a right ovarian cyst measuring 2.5 cm in diameter. The skeletal structures do not show any acute naa nges. IMPRESSION: 2.5 cm right ovarian cyst with a very small amount of free fluid in cul-de-sac. Appendix not identified. No evidence of any inflammatory process in the right lower quadrant. No acute process identified otherwise.
== END 2018-09-23 05:45 | disposition home or self-care (01) ==
LOC: ED 22:58
DX: N83.201 Unspecified ovarian cyst, right side (principal); I10 Essential (primary) hypertension; F17.200 Nicotine dependence, unspecified, uncomplicated; F12.10 Cannabis abuse, uncomplicated
CPT/HCPCS: 36415; 74177; 80053; 81001; 84703; 85007; 85025; 87086; 96361; 96374; 96375; 99284; J1885; J2270; J2405; Q9967

== ENCOUNTER 2019-02-26 17:02 | Emergency (ER) | payer MEDICAID ==
[2019-02-26 17:16] VITALS: BP 148/99
--- NOTE | 2019-02-26 17:20 | Emergency Department Report ---
Blank Doc - Documentation Documentation: 28 Y/O FEMALE PRESENTS TO ED C/O RUQ ABDOMINAL AND RADIATING TO SHOULDER. PLAN US AND LABS
[2019-02-26 17:40] LABS: Basophils % (Auto) 0.6 % (0.0-1.8); Eosinophils # (Auto) 0.1 K/mm3 (0.0-0.4); Eosinophils % (Auto) 2.7 % (0.0-4.3); Hematocrit 36.6 % (30.3-42.9); Hemoglobin 12.1 gm/dl (10.1-14.3); Lymphocytes % (Auto) 38.7 % (13.4-35.0); Mean Corpuscular HGB Conc 33 % (30-34); Mean Corpuscular Volume 85 fl (79-97); Monocytes # (Auto) 0.1 K/mm3 (0.0-0.8); Monocytes % (Auto) 2.8 % (0.0-7.3); Platelet Count 241 K/mm3 (140-440); Red Blood Count 4.28 M/mm3 (3.65-5.03); Red Cell Distribution Width 13.1 % (13.2-15.2)
[2019-02-26 18:00] LABS: Alanine Aminotransferase 13 units/L (7-56); Albumin 4.3 g/dL (3.9-5); BUN/Creatinine Ratio 10; Blood Urea Nitrogen 10 mg/dL (7-17); Calcium 9.2 mg/dL (8.4-10.2); Hemolysis Index 5
[2019-02-26 18:01] LABS: Bilirubin,Direct < 0.2 mg/dL (0-0.2)
--- NOTE | 2019-02-26 18:53 | Ultrasound Report ---
PROCEDURE: US ABDOMEN LIMITED TECHNIQUE: Real-time sonography was performed of the right upper quadrant with image documentation. HISTORY: RUQ pain COMPARISONS: CT A/P 09/23/2018 Examination of the gallbladder demonstrates gallbladder filled with echogenic shadowing gallstones wi th the gallbladder contracted. There is no evidence for distention, wall thickening, or pericholecyst ic fluid. No sonographic Pereyra's sign is elicited. Common bile duct is normal in diameter measuring 4.1 mm. The liver is increased but homogeneous in echogenicity without focal abnormality or intrahepatic bili corrina dilatation. Findings are consistent with mild fatty liver, unchanged. The pancreas is normal in thickness without focal abnormality or pancreatic duct dilatation. The right kidney is normal in size without calculi or hydronephrosis. The right measures 11.6 cm in craniocaudal length. Aorta is normal in caliber measuring 1.3 cm in diameter in its proximal portion. IMPRESSION: 1. Gallbladder is contracted and filled with gallstones 2. Mild fatty liver This document is electronically signed by Suzanne Renner MD., February 26 2019 06:51:18 PM ET
[2019-02-26] MEDS ORDERED: NACL 0.9% 1000 ML 1,000 ML IV ONE (20:43)
[2019-02-26] MEDS ORDERED: TORADOL IV ONE (20:43)
[2019-02-26] MEDS ORDERED: ZOFRAN IV ONE ×2 (20:43→21:09)
[2019-02-26] MEDS ORDERED: MORPHINE IV ONE (21:09)
--- NOTE | 2019-02-26 22:04 | Emergency Department Report ---
ED Abdominal Pain HPI - General Chief Complaint: Abdominal Pain Stated Complaint: STOMACH/BACK PAIN Time Seen by Provider: 02/26/19 17:15 Source: patient Mode of arrival: Ambulatory Limitations: No Limitations - History of Present Illness Initial Comments: pt is a 28 y/o aaf with hx of GERD who presents for RUQ pain x 3 days with n/v pain is 5/10 aching pain is exacerbated by eating pain is relieved by nothing. pt is not taking PPI or H2 blockers at this time. MD Complaint: abdominal pain Onset/Timin -: days(s), unknown (6 months intermittent) Location: RUQ Radiation: RUQ Migration to: RUQ Severity: moderate Severity scale (0 -10): 9 Quality: sharp Consistency: constant Improves With: nothing Worsens With: eating Associated Symptoms: nausea, vomiting. denies: constipation, dysuria, melena - Related Data LMP Date: 02/17/19 Previous Rx's Medication Instructions Recorded Last Taken Type Ibuprofen [Motrin] 800 mg PO Q8HR PRN #60 tablet 05/28/17 Unknown Rx oxyCODONE /ACETAMINOPHEN [Percocet 1 tab PO Q6HR PRN #30 tablet 05/28/17 Unknown Rx 5/325] Benzocaine/Mentho [Cepacol X 1 each PO Q2H PRN #24 yordan 05/11/18 Unknown Rx Strength] Ibuprofen 800 mg PO TID PRN #30 tablet 05/11/18 Unknown Rx Naproxen [Naprosyn] 500 mg PO BID PRN #12 tablet 09/23/18 Unknown Rx Ondansetron [Zofran ODT TAB] 8 mg PO Q8HR PRN #12 tab.rapdis 09/23/18 Unknown Rx Omeprazole 40 mg PO DAILY #30 capsule. 02/26/19 Unknown Rx Sucralfate [Carafate] 1 gm PO ACHS 7 Days #28 tablet 02/26/19 Unknown Rx traMADol [Ultram] 50 mg PO Q6HR PRN #12 tablet 02/26/19 Unknown Rx Allergies Allergy/AdvReac Type Severity Reaction Status Date / Time No Known Allergies Allergy Verified 02/26/19 17:05 ED Review of Systems ROS: Stated complaint: STOMACH/BACK PAIN Other details as noted in HPI Constitutional: denies: chills, fever Eyes: denies: eye pain, eye discharge, vision change ENT: denies: ear pain, throat pain Respiratory: denies: cough, shortness of breath, wheezing Cardiovascular: denies: chest pain, palpitations Endocrine: no symptoms reported Gastrointestinal: abdominal pain, vomiting. denies: nausea, diarrhea, melena Genitourinary: denies: urgency, dysuria, discharge Musculoskeletal: denies: back pain, joint swelling, arthralgia Skin: denies: rash, lesions Neurological: denies: headache, weakness, paresthesias Psychiatric: denies: anxiety, depression Hematological/Lymphatic: denies: easy bleeding, easy bruising ED Past Medical Hx - Past Medical History Previous Medical History?: No Hx Hypertension: Yes Hx Diabetes: No Hx Deep Vein Thrombosis: No Hx Renal Disease: No Hx Sickle Cell Disease: No Hx Seizures: No Hx Asthma: Yes (as a child) Hx HIV: No Additional medical history: (ectopic ) - Surgical History Additional Surgical History: 3 vaginal deliveries - Social History Smoking Status: Former Smoker Substance Use Type: Alcohol, Marijuana - Medications Home Medications: Home Medications Medication Instructions Recorded Confirmed Last Taken Type Ibuprofen [Motrin] 800 mg PO Q8HR PRN #60 tablet 05/28/17 Unknown Rx oxyCODONE /ACETAMINOPHEN [Percocet 1 tab PO Q6HR PRN #30 tablet 05/28/17 Unknown Rx 5/325] Benzocaine/Mentho [Cepacol X 1 each PO Q2H PRN #24 yordan 05/11/18 Unknown Rx Strength] Ibuprofen 800 mg PO TID PRN #30 tablet 05/11/18 Unknown Rx Naproxen [Naprosyn] 500 mg PO BID PRN #12 tablet 09/23/18 Unknown Rx Ondansetron [Zofran ODT TAB] 8 mg PO Q8HR PRN #12 tab.rapdis 09/23/18 Unknown Rx Omeprazole 40 mg PO DAILY #30 capsule.dr 02/26/19 Unknown Rx Sucralfate [Carafate] 1 gm PO ACHS 7 Days #28 tablet 02/26/19 Unknown Rx traMADol [Ultram] 50 mg PO Q6HR PRN #12 tablet 02/26/19 Unknown Rx ED Physical Exam - General Limitations: No Limitations General appearance: alert, in no apparent distress - Head Head exam: Present: atraumatic, normocephalic - Eye Eye exam: Present: normal appearance, PERRL, EOMI Pupils: Present: normal accommodation - ENT ENT exam: Present: mucous membranes moist, TM's normal bilaterally - Neck Neck exam: Present: normal inspection - Respiratory Respiratory exam: Present: normal lung sounds bilaterally. Absent: respiratory distress, wheezes, stridor, chest wall tenderness - Cardiovascular Cardiovascular Exam: Present: regular rate, normal rhythm, normal heart sounds. Absent: systolic murmur, diastolic murmur, rubs, gallop - GI/Abdominal GI/Abdominal exam: Present: soft, tenderness (RUQ ), normal bowel sounds. Absent: distended, guarding, rebound, rigid, bruit, hernia - Expanded GI/Abdominal Exam Expanded GI/Abdominal exam: Present: Pereyra's sign. Absent: ascites ED Course Vital Signs 02/26/19 17:13 Temperature 98.8 F Pulse Rate 76 Respiratory 18 Rate Blood Pressure 148/99 O2 Sat by Pulse 98 Oximetry ED Medical Decision Making - Lab Data Result diagrams: 02/26/19 17:22 02/26/19 17:22 Labs 02/26/19 02/26/19 02/26/19 17:22 17:22 17:22 WBC 5.2 RBC 4.28 Hgb 12.1 Hct 36.6 MCV 85 MCH 28 MCHC 33 RDW 13.1 L Plt Count 241 Lymph % (Auto) 38.7 H [place] % (Auto) 2.8 Eos % (Auto) 2.7 Baso % (Auto) 0.6 Lymph # 2.0 [place] # 0.1 Eos # 0.1 Baso # 0.0 Seg Neutrophils % 55.2 Seg Neutrophils # 2.9 Sodium 139 Potassium 3.6 Chloride 103.7 Carbon Dioxide 24 Anion Gap 15 BUN 10 Creatinine 1.0 Estimated GFR > 60 BUN/Creatinine Ratio 10 Glucose 131 H Calcium 9.2 Total Bilirubin 0.80 Direct Bilirubin < 0.2 Indirect Bilirubin 0.6 AST 17 ALT 13 Alkaline Phosphatase 64 Total Protein 7.2 Albumin 4.3 Albumin/Globulin Ratio 1.5 Lipase 38 - Radiology Data Radiology results: report reviewed, image reviewed Ordering Physician: LYNDON BERMAN Date of Service: 02/26/19 Procedure(s): US abdomen limited Accession Number(s): [id number] cc: LYNDON BERMAN PROCEDURE: US ABDOMEN LIMITED TECHNIQUE: Real-time sonography was performed of the right upper quadrant with image documentation. HISTORY: RUQ pain COMPARISONS: CT A/P 09/23/2018 Examination of the gallbladder demonstrates gallbladder filled with echogenic shadowing gallstones with the gallbladder contracted. There is no evidence for distention, wall thickening, or pericholecystic fluid. No sonographic Pereyra's sign is elicited. Common bile duct is normal in diameter measuring 4.1 mm. The liver is increased but homogeneous in echogenicity without focal abnormality or intrahepatic biliary dilatation. Findings are consistent with mild fatty liver, unchanged. The pancreas is normal in thickness without focal abnormality or pancreatic duct dilatation. The right kidney is normal in size without calculi or hydronephrosis. The right measures 11.6 cm in craniocaudal length. Aorta is normal in caliber measuring 1.3 cm in diameter in its proximal portion. IMPRESSION: 1. Gallbladder is contracted and filled with gallstones 2. Mild fatty liver This document is electronically signed by Suzanne Renner MD., February 26 2019 06:51:18 PM ET Transcribed By: [facility] Dictated By: SUZANNE RENNER MD Electronically Authenticated By: SUZANNE RENNER MD Signed Date/Time: 02/26/19 1853 DD/ 1839 TD/TT: 02/26/19 1840 - Medical Decision Making pain is improved pt is tolerating po intake at this time plan: PPI,Ultram, follow up with GI in 2 days return to ed if symptoms worsen or unable to tolerate po. pt verbalized agreement and understanding of same. Critical care attestation.: If time is entered above; I have spent that time in minutes in the direct care of this critically ill patient, excluding procedure time. ED Disposition Clinical Impression: Gallstones Disposition: DC-01 TO HOME OR SELFCARE Is pt being admited?: No Does the pt Need Aspirin: No Condition: Stable Instructions: Abdominal Pain (ED), Cholelithiasis (ED) Prescriptions: Sucralfate [Carafate] 1 gm PO ACHS 7 Days #28 tablet Omeprazole 40 mg PO DAILY #30 capsule. traMADol [Ultram] 50 mg PO Q6HR PRN #12 tablet PRN Reason: Pain Referrals: [facility] [Provider Group] - 3-5 Days PAZ TOLEDO MD [Staff Physician] - 3-5 Days Forms: Work/School Release Form(ED) Time of Disposition: 22:12
== END 2019-02-26 22:20 | disposition home or self-care (01) ==
LOC: ED 17:02
DX: K80.80 Other cholelithiasis without obstruction (principal); I10 Essential (primary) hypertension; J45.909 Unspecified asthma, uncomplicated; F12.90 Cannabis use, unspecified, uncomplicated; Z87.891 Personal history of nicotine dependence; Z79.899 Other long term (current) drug therapy
CPT/HCPCS: 36415; 76705; 80048; 80076; 83690; 85025; 96361; 96374; 96375; 99284; J1885; J2270; J2405; J7030

== ENCOUNTER 2019-09-11 16:33 | Emergency (ER) | payer MEDICAID ==
--- NOTE | 2019-09-11 17:39 | Event Note ---
ED Screening Note Date of service: 09/11/19 Time: 17:38 ED Screening Note: Pt complains of bilateral mid back pain, chest pain, and intermittent swelling of her right lower face and lip x 2 days This initial assessment/diagnostic orders/clinical plan/treatment(s) is/are subject to change based on patients health status, clinical progression and re- assessment by fellow clinical providers in the ED. Further treatment and workup at subsequent clinical providers discretion. Patient/guardian urged not to elope from the ED as their condition may be serious if not clinically assessed and managed. Initial orders include: labs EKG CXR
[2019-09-11 18:20] LABS: HCG Qualitative,Urine Negative (Negative)
[2019-09-11 18:21] LABS: Bilirubin,Urine NEG (Negative); Blood,Urine MOD (Negative); Color,Urine Yellow (Yellow); Mucus,Urine FEW /HPF; Protein,Urine <15 mg/dL mg/dL (Negative); Urobilinogen,Urine < 2.0 mg/dL (<2.0)
[2019-09-11 18:48] LABS: Basophils # (Auto) 0.1 K/mm3 (0.0-0.1); Basophils % (Auto) 0.9 % (0.0-1.8); Eosinophils # (Auto) 0.2 K/mm3 (0.0-0.4); Eosinophils % (Auto) 2.4 % (0.0-4.3); Hematocrit 40.7 % (30.3-42.9); Hemoglobin 13.6 gm/dl (10.1-14.3); Lymphocytes # (Auto) 2.3 K/mm3 (1.2-5.4); Lymphocytes % (Auto) 35.5 % (13.4-35.0); Mean Corpuscular HGB Conc 33 % (30-34); Mean Corpuscular Volume 86 fl (79-97); Monocytes # (Auto) 0.3 K/mm3 (0.0-0.8); Monocytes % (Auto) 4.3 % (0.0-7.3); Platelet Count 331 K/mm3 (140-440); Red Blood Count 4.72 M/mm3 (3.65-5.03); Red Cell Distribution Width 13.3 % (13.2-15.2)
--- NOTE | 2019-09-11 19:48 | XRay Report ---
CHEST 1 VIEW INDICATION: chest pain. COMPARISON: 02/03/2017. FINDINGS: Support devices: None. Heart: Within normal limits. Lungs/Pleura: No acute air space or interstitial disease. Additional findings: None. IMPRESSION: No acute abnormality. Signer Name: Zachery Dyer MD Signed: 09/11/2019 7:43 PM Workstation Name: [id number]
--- NOTE | 2019-09-11 22:10 | Emergency Department Report ---
ED General Adult HPI - General Chief complaint: Back Pain/Injury Stated complaint: FACIAL SWELLING Time Seen by Provider: 09/11/19 17:26 Source: patient Mode of arrival: Ambulatory Limitations: No Limitations - History of Present Illness Initial comments: Patient is a 28-year-old [place] female with past history of hypertension who is presenting with some chest discomfort for the past 2 weeks. Patient states that generalized achiness throughout the chest with radiation to her mid back. Patient states it's worse with movement better with rest. She denies shortness of breath cough cold congestion or trauma. The patient also states that she has had some facial swelling in the morning which resolved spontaneously. She denies itching or rash. - Related Data Previous Rx's Medication Instructions Recorded Last Taken Type Ibuprofen [Motrin] 800 mg PO Q8HR PRN #60 tablet 05/28/17 Unknown Rx oxyCODONE /ACETAMINOPHEN [Percocet 1 tab PO Q6HR PRN #30 tablet 05/28/17 Unknown Rx 5/325] Benzocaine/Mentho [Cepacol X 1 each PO Q2H PRN #24 yordan 05/11/18 Unknown Rx Strength] Ibuprofen 800 mg PO TID PRN #30 tablet 05/11/18 Unknown Rx Naproxen [Naprosyn] 500 mg PO BID PRN #12 tablet 09/23/18 Unknown Rx Ondansetron [Zofran ODT TAB] 8 mg PO Q8HR PRN #12 tab.rapdis 09/23/18 Unknown Rx Acetaminophen/Codeine [Tylenol 1 tab PO Q6H PRN #12 tab 02/26/19 Unknown Rx /Codeine # 3 tab] Omeprazole 40 mg PO DAILY #30 capsule. 02/26/19 Unknown Rx Sucralfate [Carafate] 1 gm PO ACHS 7 Days #28 tablet 02/26/19 Unknown Rx Ibuprofen [Motrin 800 MG tab] 800 mg PO Q8HR PRN #10 tablet 09/11/19 Unknown Rx Allergies Allergy/AdvReac Type Severity Reaction Status Date / Time No Known Allergies Allergy Verified 02/26/19 17:05 ED Review of Systems ROS: Stated complaint: FACIAL SWELLING Other details as noted in HPI Comment: All other systems reviewed and negative ED Past Medical Hx - Past Medical History Previous Medical History?: Yes Hx Hypertension: Yes Hx Diabetes: No Hx Deep Vein Thrombosis: No Hx Renal Disease: No Hx Sickle Cell Disease: No Hx Seizures: No Hx Asthma: Yes (as a child) Hx HIV: No Additional medical history: (ectopic ), Back pain - Surgical History Past Surgical History?: Yes Additional Surgical History: 3 vaginal deliveries - Social History Smoking Status: Never Smoker Substance Use Type: Alcohol - Medications Home Medications: Home Medications Medication Instructions Recorded Confirmed Last Taken Type Ibuprofen [Motrin] 800 mg PO Q8HR PRN #60 tablet 05/28/17 Unknown Rx oxyCODONE /ACETAMINOPHEN [Percocet 1 tab PO Q6HR PRN #30 tablet 05/28/17 Unknown Rx 5/325] Benzocaine/Mentho [Cepacol X 1 each PO Q2H PRN #24 yordan 05/11/18 Unknown Rx Strength] Ibuprofen 800 mg PO TID PRN #30 tablet 05/11/18 Unknown Rx Naproxen [Naprosyn] 500 mg PO BID PRN #12 tablet 09/23/18 Unknown Rx Ondansetron [Zofran ODT TAB] 8 mg PO Q8HR PRN #12 tab.rapdis 09/23/18 Unknown Rx Acetaminophen/Codeine [Tylenol 1 tab PO Q6H PRN #12 tab 02/26/19 Unknown Rx /Codeine # 3 tab] Omeprazole 40 mg PO DAILY #30 capsule. 02/26/19 Unknown Rx Sucralfate [Carafate] 1 gm PO ACHS 7 Days #28 tablet 02/26/19 Unknown Rx Ibuprofen [Motrin 800 MG tab] 800 mg PO Q8HR PRN #10 tablet 09/11/19 Unknown Rx ED Physical Exam - General Limitations: No Limitations General appearance: alert, in no apparent distress - Head Head exam: Present: atraumatic, normocephalic - Eye Eye exam: Present: normal appearance - ENT ENT exam: Present: mucous membranes moist - Neck Neck exam: Present: normal inspection - Respiratory Respiratory exam: Present: normal lung sounds bilaterally. Absent: respiratory distress, wheezes, rales, rhonchi - Cardiovascular Cardiovascular Exam: Present: regular rate, normal rhythm, normal heart sounds. Absent: systolic murmur, diastolic murmur, rubs, gallop - GI/Abdominal GI/Abdominal exam: Present: soft, normal bowel sounds. Absent: distended, tenderness, guarding, rebound - Extremities Exam Extremities exam: Present: normal inspection - Back Exam Back exam: Present: normal inspection - Neurological Exam Neurological exam: Present: alert, oriented X3 - Psychiatric Psychiatric exam: Present: normal affect, normal mood - Skin Skin exam: Present: warm, dry, intact, normal color. Absent: rash ED Course Vital Signs 09/11/19 17:00 Temperature 98.2 F Pulse Rate 107 H Respiratory 20 Rate Blood Pressure 124/82 O2 Sat by Pulse 97 Oximetry ED Medical Decision Making - Lab Data Result diagrams: 09/11/19 18:16 Lab Results 09/11/19 09/11/19 09/11/19 Range/Units 17:56 18:16 18:16 WBC 6.5 (4.5-11.0) K/mm3 RBC 4.72 (3.65-5.03) M/mm3 Hgb 13.6 (10.1-14.3) gm/dl Hct 40.7 (30.3-42.9) % MCV 86 (79-97) fl MCH 29 (28-32) pg MCHC 33 (30-34) % RDW 13.3 (13.2-15.2) % Plt Count 331 (140-440) K/mm3 Lymph % (Auto) 35.5 H (13.4-35.0) % [place] % (Auto) 4.3 (0.0-7.3) % Eos % (Auto) 2.4 (0.0-4.3) % Baso % (Auto) 0.9 (0.0-1.8) % Lymph # 2.3 (1.2-5.4) K/mm3 [place] # 0.3 (0.0-0.8) K/mm3 Eos # 0.2 (0.0-0.4) K/mm3 Baso # 0.1 (0.0-0.1) K/mm3 Seg Neutrophils % 56.9 (40.0-70.0) % Seg Neutrophils # 3.7 (1.8-7.7) K/mm3 Troponin T < 0.010 (0.00-0.029) ng/mL Urine Color Yellow (Yellow) Urine Turbidity Clear (Clear) Urine pH 5.0 (5.0-7.0) Ur Specific [place] 1.019 (1.003-1.030) Urine Protein <15 mg/dl (Negative) mg/dL Urine Glucose (UA) Neg (Negative) mg/dL Urine Ketones Neg (Negative) mg/dL Urine Blood Mod (Negative) Urine Nitrite Neg (Negative) Ur Reducing Substances Not Reportable Urine Bilirubin Neg (Negative) Urine Ictotest Not Reportable Urine Urobilinogen < 2.0 (<2.0) mg/dL Ur Leukocyte Esterase Neg (Negative) Urine WBC (Auto) 1.0 (0.0-6.0) /HPF Urine RBC (Auto) 2.0 (0.0-6.0) /HPF U Epithel Cells (Auto) 9.0 (0-13.0) /HPF Urine Mucus Few /HPF Urine HCG, Qual Negative (Negative) - Radiology Data Radiology results: report reviewed (CXR WNL) - Medical Decision Making Patient is a 28-year-old asthmatic female past medical history of hypertension who is presenting with some atypical chest discomfort. Patient has a single troponin ordered which was normal. Patient's symptoms were present for approximately 2 weeks. Patient also states there is some discomfort in her mid to lower back as well. Urinalysis was performed and shows no evidence of infection. Patient will be discharged home follow up with her primary care physician. Critical care attestation.: If time is entered above; I have spent that time in minutes in the direct care of this critically ill patient, excluding procedure time. ED Disposition Clinical Impression: Atypical chest pain, Back pain Disposition: DC-01 TO HOME OR SELFCARE Is pt being admited?: No Does the pt Need Aspirin: No Condition: Stable Instructions: Chest Pain (ED), Musculoskeletal Pain (ED) Referrals: PRIMARY CARE, [Primary Care Provider] - 3-5 Days Time of Disposition: 22:10
[2019-09-12 01:40] VITALS: BP 129/87
== END 2019-09-11 22:23 | disposition home or self-care (01) ==
LOC: ED 16:33
DX: R07.89 Other chest pain (principal); M54.9 Dorsalgia, unspecified; I10 Essential (primary) hypertension; J45.909 Unspecified asthma, uncomplicated; Z79.899 Other long term (current) drug therapy
CPT/HCPCS: 36415; 71045; 81001; 81025; 84484; 85025

== ENCOUNTER 2019-12-23 16:29 | Emergency (ER) | payer MEDICAID ==
[2019-12-23 16:34] VITALS: BP 130/75
== END 2019-12-23 19:17 | disposition left against medical advice (07) ==
LOC: ED 16:29
DX: R51 Headache (principal); Z53.21 Procedure and treatment not carried out due to patient leaving prior to being seen by health care provider

== ENCOUNTER 2020-07-11 19:40 | Emergency (ER) | payer MEDICAID ==
[2020-07-11 20:40] VITALS: BP 132/74
--- NOTE | 2020-07-11 20:45 | Event Note ---
ED Screening Note ED Screening Note: upper back pain that began a week ago no fall or injury no heavy lifting intermittent chest pain describes as a tightness began a couple days ago no n/v/d no fever no urinary symptoms mild cough no sob no leg swelling PMHx none no allergies to meds no recent travel, no recent surgery, no hormone use family cardiac history: mother has cardiac stent +marijuana +tobacco This initial assessment/diagnostic orders/clinical plan/treatment(s) is/are subject to change based on patients health status, clinical progression and re- assessment by fellow clinical providers in the ED. Further treatment and workup at subsequent clinical providers discretion. Patient/guardian urged not to elope from the ED as their condition may be serious if not clinically assessed and managed. Initial orders include: CP protocol
[2020-07-11 21:04] LABS: Basophils % (Auto) 0.7 % (0.0-1.8); Eosinophils # (Auto) 0.2 K/mm3 (0.0-0.4); Eosinophils % (Auto) 2.9 % (0.0-4.3); Hematocrit 35.8 % (30.3-42.9); Hemoglobin 12.5 gm/dl (10.1-14.3); Lymphocytes # (Auto) 2.5 K/mm3 (1.2-5.4); Lymphocytes % (Auto) 34.6 % (13.4-35.0); Mean Corpuscular HGB Conc 35 % (30-34); Mean Corpuscular Volume 86 fl (79-97); Monocytes # (Auto) 0.3 K/mm3 (0.0-0.8); Monocytes % (Auto) 4.6 % (0.0-7.3); Platelet Count 265 K/mm3 (140-440); Red Blood Count 4.16 M/mm3 (3.65-5.03)
[2020-07-11 21:25] LABS: Bacteria,Urine 3+ /HPF (Negative); Bilirubin,Urine NEG (Negative); Blood,Urine NEG (Negative); Color,Urine Yellow (Yellow); Mucus,Urine FEW /HPF; Protein,Urine <15 mg/dL mg/dL (Negative); Urobilinogen,Urine < 2.0 mg/dL (<2.0)
[2020-07-11 21:28] LABS: Alanine Aminotransferase 24 units/L (7-56); Albumin 4.4 g/dL (3.9-5); BUN/Creatinine Ratio 8; Blood Urea Nitrogen 8 mg/dL (7-17); Calcium 9.4 mg/dL (8.4-10.2); Hemolysis Index 11
--- NOTE | 2020-07-11 22:15 | XRay Report ---
CHEST 2 VIEWS INDICATION / CLINICAL INFORMATION: Chest pain COMPARISON: 09/11/2019. FINDINGS: SUPPORT DEVICES: None. HEART / MEDIASTINUM: No significant abnormality. LUNGS / PLEURA: No significant pulmonary or pleural abnormality. No pneumothorax. ADDITIONAL FINDINGS: No significant additional findings. IMPRESSION: No acute cardiopulmonary abnormality. Signer Name: Tae Webster MD Signed: 07/11/2020 10:10 PM Workstation Name: [id number]
--- NOTE | 2020-07-12 00:07 | Emergency Department Report ---
ED General Adult HPI - General Chief complaint: Chest Pain Stated complaint: CHEST PAIN, UPPER BACK PAIN BETWEEN SHOULDER BLADE Time Seen by Provider: 07/11/20 20:42 Source: patient Mode of arrival: Ambulatory Limitations: No Limitations - History of Present Illness Initial comments: 29-year-old female with no significant past medical history presenting with chief complaint of right sided mid back pain, onset 1 week ago constant moderate intensity worse with movement better with rest. She states that earlier today she felt a "shocking pain" go through her chest lasting for a brief period of time and then resolved. She has no chest pain at this time but does continue to complain of the back pain. No pleuritic pain, no shortness of breath fever cough vomiting or urinary symptoms. Denies any recent travel, leg swelling, history of DVT or PE, OCP use. Symptoms were gradual in onset, moderate in severity. - Related Data Previous Rx's Medication Instructions Recorded Last Taken Type Ibuprofen [Motrin] 800 mg PO Q8HR PRN #60 tablet 05/28/17 Unknown Rx oxyCODONE /ACETAMINOPHEN [Percocet 1 tab PO Q6HR PRN #30 tablet 05/28/17 Unknown Rx 5/325] Benzocaine/Mentho [Cepacol X 1 each PO Q2H PRN #24 yordan 05/11/18 Unknown Rx Strength] Ibuprofen 800 mg PO TID PRN #30 tablet 05/11/18 Unknown Rx Naproxen [Naprosyn] 500 mg PO BID PRN #12 tablet 09/23/18 Unknown Rx Ondansetron [Zofran ODT TAB] 8 mg PO Q8HR PRN #12 tab.rapdis 09/23/18 Unknown Rx Acetaminophen/Codeine [Tylenol 1 tab PO Q6H PRN #12 tab 02/26/19 Unknown Rx /Codeine # 3 tab] Omeprazole 40 mg PO DAILY #30 capsule. 02/26/19 Unknown Rx Sucralfate [Carafate] 1 gm PO ACHS 7 Days #28 tablet 02/26/19 Unknown Rx Ibuprofen [Motrin 800 MG tab] 800 mg PO Q8HR PRN #10 tablet 09/11/19 Unknown Rx diazePAM TAB [Valium] 5 mg PO TID PRN #12 tablet 07/12/20 Unknown Rx Allergies Allergy/AdvReac Type Severity Reaction Status Date / Time No Known Allergies Allergy Verified 12/23/19 16:30 ED Review of Systems ROS: Stated complaint: CHEST PAIN, UPPER BACK PAIN BETWEEN SHOULDER BLADE Other details as noted in HPI Comment: All other systems reviewed and negative Cardiovascular: as per HPI ED Past Medical Hx - Past Medical History Previous Medical History?: Yes Hx Hypertension: Yes Hx Diabetes: No Hx Deep Vein Thrombosis: No Hx Renal Disease: No Hx Sickle Cell Disease: No Hx Seizures: No Hx Asthma: No Hx HIV: No Additional medical history: (ectopic ), Back pain - Surgical History Past Surgical History?: Yes Additional Surgical History: 3 vaginal deliveries - Social History Smoking Status: Current Every Day Smoker Substance Use Type: Alcohol, Marijuana - Medications Home Medications: Home Medications Medication Instructions Recorded Confirmed Last Taken Type Ibuprofen [Motrin] 800 mg PO Q8HR PRN #60 tablet 05/28/17 Unknown Rx oxyCODONE /ACETAMINOPHEN [Percocet 1 tab PO Q6HR PRN #30 tablet 05/28/17 Unknown Rx 5/325] Benzocaine/Mentho [Cepacol X 1 each PO Q2H PRN #24 yordan 05/11/18 Unknown Rx Strength] Ibuprofen 800 mg PO TID PRN #30 tablet 05/11/18 Unknown Rx Naproxen [Naprosyn] 500 mg PO BID PRN #12 tablet 09/23/18 Unknown Rx Ondansetron [Zofran ODT TAB] 8 mg PO Q8HR PRN #12 tab.rapdis 09/23/18 Unknown Rx Acetaminophen/Codeine [Tylenol 1 tab PO Q6H PRN #12 tab 02/26/19 Unknown Rx /Codeine # 3 tab] Omeprazole 40 mg PO DAILY #30 capsule. 02/26/19 Unknown Rx Sucralfate [Carafate] 1 gm PO ACHS 7 Days #28 tablet 02/26/19 Unknown Rx Ibuprofen [Motrin 800 MG tab] 800 mg PO Q8HR PRN #10 tablet 09/11/19 Unknown Rx diazePAM TAB [Valium] 5 mg PO TID PRN #12 tablet 07/12/20 Unknown Rx ED Physical Exam - General Limitations: No Limitations General appearance: alert, in no apparent distress - Head Head exam: Present: atraumatic, normocephalic - Eye Eye exam: Present: normal appearance - ENT ENT exam: Present: mucous membranes moist - Neck Neck exam: Present: normal inspection - Respiratory Respiratory exam: Present: normal lung sounds bilaterally. Absent: respiratory distress, wheezes - Cardiovascular Cardiovascular Exam: Present: regular rate, normal rhythm. Absent: systolic murmur, diastolic murmur, rubs, gallop - GI/Abdominal GI/Abdominal exam: Present: soft, normal bowel sounds. Absent: distended, tenderness, guarding - Extremities Exam Extremities exam: Present: normal inspection - Back Exam Back exam: Present: normal inspection, other (There is a single area of pain at the inferior aspect of the right scapula, reproducible with palpation and movement. No midline spinal tenderness.) - Neurological Exam Neurological exam: Present: alert, oriented X3 - Psychiatric Psychiatric exam: Present: normal affect, normal mood - Skin Skin exam: Present: warm, dry, intact, normal color. Absent: rash ED Course Vital Signs 07/11/20 19:57 Temperature 98.8 F Pulse Rate 93 H Respiratory 18 Rate Blood Pressure 132/74 O2 Sat by Pulse 98 Oximetry ED Medical Decision Making - Lab Data Result diagrams: 07/11/20 20:52 07/11/20 20:52 - EKG Data -: EKG Interpreted by Or EKG shows normal: sinus rhythm, axis, intervals, QRS complexes, ST-T waves Rate: normal - Radiology Data Radiology results: report reviewed Negative chest x-ray - Medical Decision Making 29-year-old female present with chief complaint of back pain for the past week worse with movement better with rest, located at the inferior aspect of the right scapula. This is easily reproducible on exam. She did have a single episode of chest pain earlier today though this has resolved and she has none at this time. On exam heart sounds are normal, lungs are clear, abdomen soft and nontender, no CVA pain. This is consistent with musculoskeletal pain. Patient has a low risk heart score, is PERC negative and has a low risk Wells PE score. Recommend supportive care and outpatient PCP follow-up and return here if any symptoms worsen. - Differential Diagnosis Musculoskeletal pain, pleurisy, PE unlikely Critical care attestation.: If time is entered above; I have spent that time in minutes in the direct care of this critically ill patient, excluding procedure time. ED Disposition Clinical Impression: Acute thoracic back pain Qualifiers: Back pain laterality: right Qualified Code(s): M54.6 - Pain in thoracic spine Disposition: DC-01 TO HOME OR SELFCARE Is pt being admited?: No Condition: Good Instructions: Acute Back Pain, Adult, Thoracic Strain, [id number] Prescriptions: diazePAM TAB [Valium] 5 mg PO TID PRN #12 tablet PRN Reason: Anxiety Referrals: PRIMARY CARE,MD [Primary Care Provider] - 3-5 Days Time of Disposition: 00:07
== END 2020-07-12 00:10 | disposition home or self-care (01) ==
LOC: ED 19:40
DX: M54.6 Pain in thoracic spine (principal); I10 Essential (primary) hypertension; F17.200 Nicotine dependence, unspecified, uncomplicated; F12.10 Cannabis abuse, uncomplicated; Z98.890 Other specified postprocedural states; Z79.899 Other long term (current) drug therapy; Z79.1 Long term (current) use of non-steroidal anti-inflammatories (NSAID)
CPT/HCPCS: 36415; 71046; 80053; 81001; 84484; 84703; 85025; 93005

== ENCOUNTER 2020-10-18 11:28 | Emergency (ER) | payer MEDICAID ==
--- NOTE | 2020-10-18 12:12 | Event Note ---
ED Screening Note Date of service: 10/18/20 Time: 12:08 ED Screening Note: This is a 29-year-old female sent to the ED by primary care physician to be evaluated after patient is complaining of bilateral calf pain and swelling x2 weeks with worsening chest tightness / shortness of breath that began yesterday. Patient states that pain is worsened in the left calf than the right. Patient denies any recent activities, injuries or strain This initial assessment/diagnostic orders/clinical plan/treatment(s) is/are subject to change based on patients health status, clinical progression and re- assessment by fellow clinical providers in the ED. Further treatment and workup at subsequent clinical providers discretion. Patient/guardian urged not to elope from the ED as their condition may be serious if not clinically assessed and managed. Initial orders include: CBC, D-dimer, EKG, chest x-ray Doppler study if d-dimer pos
[2020-10-18 12:46] LABS: Basophils # (Auto) 0.1 K/mm3 (0.0-0.1); Basophils % (Auto) 0.9 % (0.0-1.8); Eosinophils # (Auto) 0.1 K/mm3 (0.0-0.4); Eosinophils % (Auto) 2.4 % (0.0-4.3); Hematocrit 35.7 % (30.3-42.9); Hemoglobin 12.1 gm/dl (10.1-14.3); Lymphocytes # (Auto) 1.7 K/mm3 (1.2-5.4); Lymphocytes % (Auto) 31.7 % (13.4-35.0); Mean Corpuscular HGB Conc 34 % (30-34); Mean Corpuscular Volume 88 fl (79-97); Monocytes # (Auto) 0.3 K/mm3 (0.0-0.8); Monocytes % (Auto) 4.8 % (0.0-7.3); Platelet Count 197 K/mm3 (140-440); Red Blood Count 4.06 M/mm3 (3.65-5.03); Red Cell Distribution Width 13.5 % (13.2-15.2)
[2020-10-18 13:04] LABS: BUN/Creatinine Ratio 10; Blood Urea Nitrogen 9 mg/dL (7-17); Hemolysis Index 7
--- NOTE | 2020-10-18 14:00 | XRay Report ---
CHEST 2 VIEWS INDICATION / CLINICAL INFORMATION: cp. COMPARISON: None available. FINDINGS: SUPPORT DEVICES: None. HEART / MEDIASTINUM: No significant abnormality. LUNGS / PLEURA: No significant pulmonary or pleural abnormality. No pneumothorax. ADDITIONAL FINDINGS: No significant additional findings. IMPRESSION: 1. No acute findings. Signer Name: Aidan Wetzel MD Signed: 10/18/2020 1:55 PM Workstation Name: [id number]
--- NOTE | 2020-10-18 14:19 | Emergency Department Report ---
ED General Adult HPI - General Chief complaint: Dyspnea/Respdistress Stated complaint: CP/SOB Time Seen by Provider: 10/18/20 14:17 Source: patient Mode of arrival: Ambulatory Limitations: No Limitations - History of Present Illness Initial comments: Patient is a 29-year-old female sent from primary care doctor's office for evaluation of left calf pain times several days associated with nocturnal orthopnea and dry nonproductive cough. Patient had negative COVID-19 test for generalized malaise 10 days ago. Patient denies sore throat, denies fever. Patient denies injuring her left leg. - Related Data Previous Rx's Medication Instructions Recorded Last Taken Type Ibuprofen [Motrin] 800 mg PO Q8HR PRN #60 tablet 05/28/17 Unknown Rx oxyCODONE /ACETAMINOPHEN [Percocet 1 tab PO Q6HR PRN #30 tablet 05/28/17 Unknown Rx 5/325] Benzocaine/Mentho [Cepacol X 1 each PO Q2H PRN #24 yordan 05/11/18 Unknown Rx Strength] Ibuprofen 800 mg PO TID PRN #30 tablet 05/11/18 Unknown Rx Naproxen [Naprosyn] 500 mg PO BID PRN #12 tablet 09/23/18 Unknown Rx Ondansetron [Zofran ODT TAB] 8 mg PO Q8HR PRN #12 tab.rapdis 09/23/18 Unknown Rx Acetaminophen/Codeine [Tylenol 1 tab PO Q6H PRN #12 tab 02/26/19 Unknown Rx /Codeine # 3 tab] Omeprazole 40 mg PO DAILY #30 capsule. 02/26/19 Unknown Rx Sucralfate [Carafate] 1 gm PO ACHS 7 Days #28 tablet 02/26/19 Unknown Rx Ibuprofen [Motrin 800 MG tab] 800 mg PO Q8HR PRN #10 tablet 09/11/19 Unknown Rx diazePAM TAB [Valium] 5 mg PO TID PRN #12 tablet 07/12/20 Unknown Rx Allergies Allergy/AdvReac Type Severity Reaction Status Date / Time No Known Allergies Allergy Verified 10/18/20 11:59 ED Review of Systems ROS: Stated complaint: CP/SOB Other details as noted in HPI Comment: All other systems reviewed and negative ED Past Medical Hx - Past Medical History Hx Hypertension: Yes Hx Diabetes: No Hx Deep Vein Thrombosis: No Hx Renal Disease: No Hx Sickle Cell Disease: No Hx Seizures: No Hx Asthma: No Hx HIV: No Additional medical history: (ectopic ), Back pain - Surgical History Additional Surgical History: 3 vaginal deliveries - Social History Smoking Status: Never Smoker Substance Use Type: None - Medications Home Medications: Home Medications Medication Instructions Recorded Confirmed Last Taken Type Ibuprofen [Motrin] 800 mg PO Q8HR PRN #60 tablet 05/28/17 Unknown Rx oxyCODONE /ACETAMINOPHEN [Percocet 1 tab PO Q6HR PRN #30 tablet 05/28/17 Unknown Rx 5/325] Benzocaine/Mentho [Cepacol X 1 each PO Q2H PRN #24 yordan 05/11/18 Unknown Rx Strength] Ibuprofen 800 mg PO TID PRN #30 tablet 05/11/18 Unknown Rx Naproxen [Naprosyn] 500 mg PO BID PRN #12 tablet 09/23/18 Unknown Rx Ondansetron [Zofran ODT TAB] 8 mg PO Q8HR PRN #12 tab.rapdis 09/23/18 Unknown Rx Acetaminophen/Codeine [Tylenol 1 tab PO Q6H PRN #12 tab 02/26/19 Unknown Rx /Codeine # 3 tab] Omeprazole 40 mg PO DAILY #30 capsule.dr 02/26/19 Unknown Rx Sucralfate [Carafate] 1 gm PO ACHS 7 Days #28 tablet 02/26/19 Unknown Rx Ibuprofen [Motrin 800 MG tab] 800 mg PO Q8HR PRN #10 tablet 09/11/19 Unknown Rx diazePAM TAB [Valium] 5 mg PO TID PRN #12 tablet 07/12/20 Unknown Rx ED Physical Exam - General Limitations: No Limitations General appearance: alert, in no apparent distress - Head Head exam: Present: atraumatic, normocephalic - Eye Eye exam: Present: normal appearance - ENT ENT exam: Present: mucous membranes moist - Neck Neck exam: Present: normal inspection - Respiratory Respiratory exam: Present: normal lung sounds bilaterally, wheezes (Left base). Absent: respiratory distress - Cardiovascular Cardiovascular Exam: Present: regular rate, normal rhythm - GI/Abdominal GI/Abdominal exam: Present: soft, normal bowel sounds - Extremities Exam Extremities exam: Present: normal inspection, calf tenderness (Left) - Back Exam Back exam: Present: normal inspection - Neurological Exam Neurological exam: Present: alert, oriented X3 - Psychiatric Psychiatric exam: Present: normal affect, normal mood - Skin Skin exam: Present: warm, dry, intact, normal color. Absent: rash ED Course Vital Signs 10/18/20 10/18/20 10/18/20 11:58 12:02 15:52 Temperature 99.2 F Pulse Rate 72 Pulse Rate [ 64 Anterior Bilateral Throughout] Respiratory 20 Rate Respiratory 18 Rate [Anterior Bilateral Throughout] Blood Pressure 138/85 Blood Pressure [Left] O2 Sat by Pulse 98 Oximetry 10/18/20 16:19 Temperature Pulse Rate 60 Pulse Rate [ Anterior Bilateral Throughout] Respiratory 18 Rate Respiratory Rate [Anterior Bilateral Throughout] Blood Pressure Blood Pressure 128/87 [Left] O2 Sat by Pulse 99 Oximetry - Reevaluation(s) Reevaluation #1: 10/18/20 14:38 Patient initially treated with DuoNeb x1 with resolution of wheezing at left lung base. On reevaluation, lungs clear to auscultation bilaterally. ED Medical Decision Making - Lab Data Result diagrams: 10/18/20 12:30 10/18/20 12:30 Labs 10/18/20 10/18/20 10/18/20 12:30 12:30 12:30 WBC 5.4 RBC 4.06 Hgb 12.1 Hct 35.7 MCV 88 MCH 30 MCHC 34 RDW 13.5 Plt Count 197 Lymph % (Auto) 31.7 Sharp % (Auto) 4.8 Eos % (Auto) 2.4 Baso % (Auto) 0.9 Lymph # (Auto) 1.7 Sharp # (Auto) 0.3 Eos # (Auto) 0.1 Baso # (Auto) 0.1 Seg Neutrophils % 60.2 Seg Neutrophils # 3.2 D-Dimer 135.00 Sodium 137 Potassium 3.8 Chloride 104.5 Carbon Dioxide 26 Anion Gap 10 BUN 9 Creatinine 0.9 Estimated GFR > 60 BUN/Creatinine Ratio 10 Glucose 110 H Calcium 9.0 Total Creatine Kinase Troponin T HCG, Qual 10/18/20 10/18/20 10/18/20 12:30 12:30 12:53 WBC RBC Hgb Hct MCV MCH MCHC RDW Plt Count Lymph % (Auto) Sharp % (Auto) Eos % (Auto) Baso % (Auto) Lymph # (Auto) Sharp # (Auto) Eos # (Auto) Baso # (Auto) Seg Neutrophils % Seg Neutrophils # D-Dimer Sodium Potassium Chloride Carbon Dioxide Anion Gap BUN Creatinine Estimated GFR BUN/Creatinine Ratio Glucose Calcium Total Creatine Kinase 196 H Troponin T < 0.010 HCG, Qual Negative Vital Signs 10/18/20 10/18/20 11:58 12:02 Temperature 99.2 F Pulse Rate 72 Respiratory 20 Rate Blood Pressure 138/85 O2 Sat by Pulse 98 Oximetry - EKG Data -: EKG Interpreted by Me (Sinus rhythm at 66, no ST-T changes, normal QRS) - Radiology Data Radiology results: report reviewed CXR: neg per radiology [facility] [address] [place] [address] XRay Report Signed Patient: FATOUMATA AYALA MR#: [id number] : 02/23/1960 Acct:[id number] Age/Sex: 60 / M ADM Date: 10/18/20 Loc: ED Attending Dr: Ordering Physician: HAIR GUNDERSON MD Date of Service: 10/18/20 Procedure(s): XR chest 1V ap Accession Number(s): [id number] cc: HAIR GUNDERSON MD Fluoro Time In Minutes: CHEST 1 VIEW 10/18/2020 1:33 PM INDICATION / CLINICAL INFORMATION: Altered Mental Status. COMPARISON: Chest x-ray on 08/20/2020 FINDINGS: SUPPORT DEVICES: None. HEART / MEDIASTINUM: Stable. LUNGS / PLEURA: Mildly worsening patchy bilateral opacities. No pneumothorax. ADDITIONAL FINDINGS: No significant additional findings. IMPRESSION: 1. Mild worsening of patchy bilateral pulmonary opacities. Signer Name: Boston Drake MD Signed: 10/18/2020 1:38 PM Workstation Name: [id number] Transcribed By: COLLETTE Dictated By: Boston Drake MD Electronically Authenticated By: Boston Drake MD Signed Date/Time: 10/18/20 1338 DD/DT: 02 Critical care attestation.: If time is entered above; I have spent that time in minutes in the direct care of this critically ill patient, excluding procedure time. ED Disposition Clinical Impression: Pain of left calf, Shortness of breath Disposition: DC-01 TO HOME OR SELFCARE Is pt being admited?: No Condition: Stable Instructions: Shortness of Breath, Adult, [id number], Pain Without a Known Cause Referrals: PRIMARY CARE, [Referring] - 3-5 Days
[2020-10-18] MEDS ORDERED: IPRATROPIUM/ALBUTEROL SULFATE 3 ML AMPUL.NEB IH ONE (14:36)
--- NOTE | 2020-10-18 15:30 | Vascular Lab Report ---
DUPLEX DOPPLER LOWER EXTREMITY VEINS, LEFT INDICATION: Left leg pain. TECHNIQUE: Duplex doppler imaging was performed through the veins of the left lower extremity using venous compression and other maneuvers. COMPARISON: No relevant prior imaging study available. FINDINGS: Left Common femoral vein: Negative. Left Superficial femoral vein: Negative. Left Popliteal vein: Negative. Left Calf veins: Negative. Additional findings: None. IMPRESSION: No sonographic evidence for DVT in the left lower extremity. Signer Name: Desmond Olivares Jr, MD Signed: 10/18/2020 3:25 PM Workstation Name: [id number]
[2020-10-18 16:20] VITALS: BP 128/87
== END 2020-10-18 16:20 | disposition home or self-care (01) ==
LOC: ED 11:28
DX: R06.02 Shortness of breath (principal); M79.605 Pain in left leg; I10 Essential (primary) hypertension; Z98.890 Other specified postprocedural states; Z79.1 Long term (current) use of non-steroidal anti-inflammatories (NSAID); Z79.899 Other long term (current) drug therapy
CPT/HCPCS: 36415; 71046; 80048; 82550; 84484; 84703; 85025; 85379; 93005; 94640; 94644